=== PATIENT | female | born 1970 | race Caucasian/White ===

== ENCOUNTER → 2016-05-06 | Outpatient (CLI) | payer OTHER ==
--- NOTE | 2016-05-06 12:13 | US ---
EXAMINATION TYPE: US pelvic complete DATE OF EXAM: 05/06/2016 8:40 AM COMPARISON: NONE CLINICAL HISTORY: metrorrhagia, on meds for B/P (Diavan); Ht5'4, Wt 260lbs; C Section x 2, patie nt stated is being assessed for potential endometrial ablation TECHNIQUE: Transabdominal (TA) Date of LMP: 04/05/2016 EXAM MEASUREMENTS: Uterus: 9.6 x 4.5 x 3.3cm Endometrial Stripe: 0.7cm Right Ovary: 2.4 x 1.6 x 1.1cm Left Ovary: not identified FINDINGS: Exam is limited. There is no ascites present. 1. Uterus: Anteverted 2. Endometrium: thinner for Day 31LMP 3. Right Ovary: wnl 4. Left Ovary: not seen after multiple assessments by TAUS; patient deferred TVUS 5. Bilateral Adnexa: bowel noted in bilateral adnexa 6. Posterior cul-de-sac: wnl IMPRESSION: Limited exam.
== END | disposition home or self-care (01) ==
LOC: RADUSWWP 08:06
PROVIDERS: ATTEND Obstetrics & Gynecology
DX: N92.1 Excessive and frequent menstruation with irregular cycle (principal)
CPT/HCPCS: 76856

== ENCOUNTER → 2016-10-06 | Outpatient (CLI) | payer OTHER ==
--- NOTE | 2016-10-06 08:58 | MM ---
Reason for exam: follow-up at short interval from prior study. Last mammogram was performed 6 months ago. History: Patient had first child at age 31. Family history of breast cancer in mother at age 58. Taking hormonal contraceptives for 5 years. Physical Findings: Nurse did not find any significant physical abnormalities on exam. MG 3D Diag Mammo W/Cad LT CC and MLO view(s) were taken of the left breast. Prior study comparison: April 16, 2016, bilateral MG 3d screening mammo w/cad. July 24, 2014, left breast MG work up mamm w CAD LT. July 18, 2014, bilateral MG screening mammo w CAD. There are scattered fibroglandular densities. There is chronic nodularity in the left breast. There is no new dominant lesion. These results were verbally communicated with the patient and result sheet given to the patient on 10/06/16. ASSESSMENT: Benign, BI-RAD 2 RECOMMENDATION: Routine screening mammogram of both breasts in 6 months. Back on schedule.
== END | disposition home or self-care (01) ==
LOC: RADMAMWWP 06:48
PROVIDERS: ATTEND Obstetrics & Gynecology
DX: R92.8 Other abnormal and inconclusive findings on diagnostic imaging of breast (principal)
CPT/HCPCS: G0206; G0279

== ENCOUNTER → 2016-12-01 | Outpatient (CLI) | payer OTHER ==
[2016-12-01 11:25] LABS: ALT 32 U/L (9-52); AST 18 U/L (14-36); Alkaline Phosphatase 62 U/L (38-126); Anion Gap 7 mmol/L; Blood Urea Nitrogen 14 mg/dL (7-17); Calcium 9.3 mg/dL (8.4-10.2); Carbon Dioxide 32 mmol/L (22-30); Chloride 101 mmol/L (98-107); Cholesterol 141 mg/dL (<200); Glucose 83 mg/dL (74-99); HDL Cholesterol 56 mg/dL (40-60); Non-African American GFR(MDRD) >60 (>60 ml/min/1.73 sqM); Potassium 4.4 mmol/L (3.5-5.1); Sodium 140 mmol/L (137-145); Total Bilirubin 0.9 mg/dL (0.2-1.3); Total Protein 6.5 g/dL (6.3-8.2); Triglycerides 109 mg/dL (<150)
== END | disposition home or self-care (01) ==
LOC: LABWHC1 10:27
PROVIDERS: ATTEND Orthopaedic Surgery
DX: Z01.812 Encounter for preprocedural laboratory examination (principal); I10 Essential (primary) hypertension
CPT/HCPCS: 36415; 80053; 80061; 82306

== ENCOUNTER → 2016-12-01 | Outpatient (CLI) | payer OTHER ==
[2016-12-01 11:19] LABS: CH 33.2; CHCM 34.5; HDW 2.87; HGB 14.3 gm/dL (11.4-16.0); MCHC 34.1 g/dL (31.0-37.0); MCV 96.7 fL (80.0-100.0); Mean Platelet Volume 8.3; RBC 4.34 m/uL (3.80-5.40); RDW 13.6 % (11.5-15.5); WBC 6.3 k/uL (3.8-10.6)
[2016-12-01 11:36] LABS: Partial Thromboplastin Time 24.5 sec (22.0-30.0); Prothrombin Time 9.8 sec (9.0-12.0)
[2016-12-01 11:38] LABS: Appearance,Urine Clear (Clear); Bacteria,Urine Rare /hpf; Bilirubin,Urine Negative (Negative); Glucose,Urine (UA) Negative (Negative); Ketones,Urine Negative (Negative); Leukocyte Esterase,Urine Negative (Negative); Mucus,Urine Rare /hpf; Nitrite,Urine Negative (Negative); Particle Count 3795; Protein,Urine Trace (Negative); RBC,Urine 5 /hpf (0-5); Specific Gravity,Urine 1.021 (1.001-1.035); Squamous Epithelial Cell,Urine 2 /hpf (0-4); UA Billing (MACRO vs. MICRO) MICRO; Urobilinogen,Urine <2.0 mg/dL (<2.0); WBC,Urine 2 /hpf (0-5)
== END | disposition home or self-care (01) ==
LOC: LABPAT 10:15
PROVIDERS: ATTEND Orthopaedic Surgery
DX: Z01.812 Encounter for preprocedural laboratory examination (principal); I10 Essential (primary) hypertension
CPT/HCPCS: 81001; 84443; 85027; 85610; 85730; 87070; 87086

== ENCOUNTER 2016-12-15 07:30 | Inpatient (IN) | payer OTHER ==
--- NOTE | 2016-12-14 14:33 | HP ---
Surgery is scheduled for 12/15/2016. Joaquina Holden is a 46-year-old patient seen with symptomatic right knee osteoarthritis. After treatment options were discussed, she elected to proceed with right total knee arthroplasty. Consent was obtained. Medical clearance was provided by Dr. Chu. PAST MEDICAL HISTORY: Hypertension, osteoarthritis. PAST SURGICAL HISTORY: section, left total knee arthroplasty, tubal ligation, tonsillectomy, D&C. DAILY MEDICATIONS: Boniva, Depo-Provera, Diovan, Lortab. ALLERGIES: None reported. SOCIAL HISTORY: Patient denies current tobacco use. PHYSICAL EVALUATION OF THE RIGHT KNEE: Range of motion is -3 to 110 degrees. There is tenderness along the medial joint line. There is crepitance along the medial patellofemoral compartment with range of motion. There is pain with patellofemoral compression. Ligament stable. Hip rotation is without pain. Distal neurovascular exam is intact. Radiographs of the right knee reveal severe osteoarthritis. IMPRESSION: Right knee osteoarthritis. PLAN: Right total knee arthroplasty. SHORTY
[~2016-12-15 07:30] MED LIST: ACETAMINOPHEN TAB 500 MG TAB PO ONE; DEXAMETHASONE SOD PHOSPHATE 10 MG/ML 1 ML VIAL IV ONE; HYDROmorphone 1 MG/ML 1 ML SYRINGE IVP PRN; MELOXICAM 7.5 MG TAB PO ONE; MIDAZOLAM 2 MG/2 ML VIAL IV PRN; ONDANSETRON 4 MG/2 ML VIAL IVP ONE; TRANEXAMIC ACID 1,000 MG in SODIUM CHLORIDE 0.9% 100 ML IVPB ONE; ceFAZolin 3 GM in SODIUM CHLORIDE 0.9% 100 ML IVPB ONE
[2016-12-15] MEDS: LACTATED RINGERS 1,000 ML IV SCH ×2 (08:42→13:43)
[2016-12-15] MEDS ORDERED: MIDAZOLAM 2 MG/2 ML VIAL IVP ONE (09:23)
[2016-12-15] MEDS ORDERED: ROPIVACAINE 246.25 MG, EPINEPHrine 0.5 MG, KETOROLAC 30 MG, cloNIDine HCL/PF 80 MCG, WA... MISCELLANE ONE ×5 (09:50)
[2016-12-15] MEDS ORDERED: PROPOFOL 10 MG/ML 20 ML VIAL IV ONE (10:16)
[2016-12-15] MEDS ORDERED: LIDOCAINE 1% INJ 10MG/ML (20 ML MDV) ONE (10:16)
[2016-12-15] MEDS ORDERED: MIDAZOLAM 2 MG/2 ML VIAL ONE (10:16)
[2016-12-15] MEDS ORDERED: ceFAZolin 3,000 MG in SODIUM CHLORIDE 0.9% IRRIGATIO 3,000 ML IRRIGATION ONE (10:16)
[2016-12-15] MEDS ORDERED: LACTATED RINGERS 1,000 ML IV ONE (11:15)
[2016-12-15] MEDS ORDERED: NALOXONE 0.4 MG/ML 1 ML VIAL IV PRN (12:18)
[2016-12-15] MEDS ORDERED: HYDROcodone/APAP 7.5-325MG 1 EACH TAB PO PRN (12:18)
[2016-12-15] MEDS ORDERED: ONDANSETRON 4 MG/2 ML VIAL IVP PRN (12:18)
[2016-12-15] MEDS ORDERED: hydrOXYzine PAMOATE 25 MG CAP PO PRN (12:18)
[2016-12-15] MEDS ORDERED: HYDROmorphone 1 MG/ML 1 ML SYRINGE IVP PRN ×2 (12:18)
--- NOTE | 2016-12-15 12:18 | P.OP ---
Date of Procedure: 12/15/16 Preoperative Diagnosis: Right knee osteoarthritis Postoperative Diagnosis: Right knee osteoarthritis Procedure(s) Performed: Right total knee arthroplasty Implants: 1. Donya persona right size 6 narrow cemented cruciate retaining femoral component 2. Donya persona right size E cemented tibial tray 3. Donya persona 13 mm medial congruent polyethylene tibial insert 4. Donya persona 32 mm all polyethylene cemented patella Anesthesia: regional (Adductor canal block), local, spinal Surgeon: Tommy Nance Measurement Coordinator #1: Honorio Vallejo Estimated Blood Loss (ml): 250 Pathology: other (Bone) Condition: stable Disposition: PACU Indications for Procedure: 46-year-old patient seen was symptomatic right knee osteoarthritis. After treatment options were discussed, she elected to proceed with total knee arthroplasty. Operative Findings: see description of procedure Description of Procedure: Patient was taken to the operative suite after having undergone an adductor canal block by department of anesthesia. Patient underwent a spinal anesthetic by the department of anesthesia. Patient was given preoperative IV antibiotics and TXA. A well-padded tourniquet was placed about the [] lower extremity. The lower extremity was then prepped and draped in the normal sterile orthopedic fashion. A standard anterior incision was made sharply through skin. Dissection was taken down through the subcutaneous soft tissues down to the extensor mechanism. A medial arthrotomy was performed, patella was everted and knee was flexed. There was advanced osteoarthritis noted. A proximal tibial cutting guide was positioned. Proximal tibial cut was made. A distal intramedullary femoral cutting guide was positioned, distal femoral cut made. We placed the appropriate sizing guide and selected the appropriate size. A distal 4-in-1 femoral cutting block was positioned, distal femoral cuts were made. We now placed a trial femoral component into position, along with an appropriate size tibial tray and insert. We now took the knee through range of motion and had full extension good flexion and good overall soft tissue balance noted. The patella was everted and a flush cut made with patellar quad tendon. We templated the patella, appropriate drill holes were made. An appropriate trial patella was positioned, knee was taken through full range of motion with the patella tracking very nicely. The trial patella was removed. Drill holes were made through the femoral component. At this point we did insufflated the tourniquet to 350. All trial components were removed after marking off the appropriate rotation of the tibia. Retractors were now positioned along the proximal tibia. An appropriate keel punch was made with the appropriate size tibial guide. At this point appropriate size implants were chosen and opened. The joint was irrigated copiously with pulse lavage mechanical irrigation. The deep soft tissues were infiltrated local analgesic. We mixed antibiotic methylmethacrylate. Once the methyl methacrylate was ready, the tibial component was cemented into place removing any excess methylmethacrylate. The femoral component was cemented into place removing the removing any excess methylmethacrylate. We then inserted the appropriate size polyethylene tibial insert. We made sure that it was locked into position. We took the knee into full extension, and then back in a flexion making sure we had removed any excess methylmethacrylate. The patellar component was then cemented down and secured with clamp. Excess methylmethacrylate removed. We kept the knee in full extension, patellar clamp in position until methylmethacrylate had hardened. Once it had hardened the patellar clamp was removed. The knee was taken through full range of motion. The patella tracked nicely. There was good soft tissue balancing. The tourniquet was now released. Additional hemostasis was achieved via electrocautery. The wound was again irrigated with pulse lavage mechanical irrigation. A second gram of TXA was given. The extensor mechanism was repaired with Vicryl. We checked the repair with range of motion and it was stable. The subcutaneous soft tissues were repaired with Vicryl in layers. The skin was approximated with pernio/Dermabond. Sterile dressings were applied followed by loose web roll and Moses bandage. The patient was transferred to a bed, and taken to recovery in stable and satisfactory condition. Junaid FERNANDEZ assisted with the procedure.
[2016-12-15] MEDS ORDERED: ROPIVACAINE 1,100 MG, SODIUM CHLORIDE 0.9% 330 ML MISCELLANE PRN ×2 (12:26)
--- NOTE | 2016-12-15 13:24 | XR ---
EXAMINATION TYPE: XR knee limited RT DATE OF EXAM: 12/15/2016 CLINICAL HISTORY: Right knee pain and arthritis status post total knee replacement. TECHNIQUE: Portable AP and crosstable lateral views of the right knee are obtained immediately posto peratively. COMPARISON: Left knee radiographs dated 03/23/2011 FINDINGS: Metallic hardware from total right knee arthroplasty is seen and appears satisfactory in a lignment and position. There is evidence of recent surgery with diffuse subcutaneous gas. IMPRESSION: METALLIC HARDWARE FROM TOTAL RIGHT KNEE ARTHROPLASTY IS SATISFACTORY IN ALIGNMENT.
[2016-12-15] MEDS: traMADol 50 MG TAB PO SCH ×3 (13:41→22:35)
[2016-12-15 13:49] VITALS: BMI 46.4
[2016-12-15] MEDS: HYDROmorphone 1 MG/ML 1 ML SYRINGE IVP PRN ×2 (14:20→18:37)
[2016-12-15] MEDS: ceFAZolin 3 GM in SODIUM CHLORIDE 0.9% 100 ML IVPB SCH (16:08)
--- NOTE | 2016-12-15 16:10 | P.CONS ---
History of Present Illness - Reason for Consult Consult date: 12/15/16 Medical management Requesting physician: Tommy Nance - Chief Complaint Right total knee replacement medical management - History of Present Illness This is a pleasant 46-year-old old lady patient of Dr. Carver. She has underlying history of hypertension, DJD, admitted to the hospital for elective right total knee arthroplasty performed by Dr. Nance on December 15, she came in postoperatively without any complications. DVT, patient denies any chest pain no shortness of breath no difficulty breathing, no nausea no vomiting. She had spinal anesthesia. Review of Systems Constitutional: Reports as per HPI, Denies anorexia, Denies chills, Denies chronic headaches, Denies chronic pain, Denies daytime sleepiness, Denies fatigue, Denies fever, Denies lethargy, Denies malaise, Denies night sweats, Denies poor appetite, Denies sweats, Denies weakness, Denies weight gain, Denies weight loss Ears, nose, mouth and throat: Reports as per HPI, Denies ant. neck pain, Denies bleeding gums, Denies dental pain, Denies dysphagia, Denies epistaxis, Denies headache, Denies hoarseness, Denies mouth pain, Denies nasal congestion, Denies nasal discharge, Denies neck fullness/pressure, Denies neck lump, Denies nose pain, Denies odynophagia, Denies post-nasal drip, Denies sinus pain, Denies sinus pressure, Denies swelling in mouth, Denies swelling in throat, Denies sore throat, Denies vertigo, Denies voice changes Cardiovascular: Reports as per HPI, Denies chest pain, Denies claudication, Denies decreased exercise tolerance, Denies dyspnea on exertion, Denies edema, Denies high blood pressure, Denies irregular heart beat, Denies leg edema, Denies lightheadedness, Denies orthopnea, Denies palpitations, Denies paroxysmal nocturnal dyspnea, Denies phlebitis, Denies rapid heart beat, Denies shortness of breath, Denies syncope Respiratory: Reports as per HPI, Denies congestion, Denies cough, Denies cough with sputum, Denies dyspnea, Denies excessive sputum, Denies hemoptysis, Denies home oxygen, Denies pain, Denies pain on inspiration, Denies pleurisy, Denies respiratory infections, Denies sleep apnea, Denies snoring, Denies wheezing Gastrointestinal: Reports as per HPI, Denies abdominal pain, Denies belching, Denies bloating, Denies BRBPR, Denies change in bowel habits, Denies coffee ground emesis, Denies constipation, Denies diarrhea, Denies dyspepsia, Denies early satiety, Denies excessive gas, Denies heartburn, Denies hematemesis, Denies hematochezia, Denies indigestion, Denies jaundice, Denies lactose intolerance, Denies loss of appetite, Denies melena, Denies nausea, Denies vomiting Genitourinary: Reports as per HPI, Denies abnormal vaginal bleeding, Denies decreased libido, Denies difficulty conceiving, Denies difficulty voiding, Denies dysmenorrhea, Denies dyspareunia, Denies dysuria, Denies flank pain, Denies genital sores, Denies hematuria, Denies hot flashes, Denies incomplete emptying, Denies kidney stones, Denies menorrhagia, Denies mixed incontinence, Denies nocturia, Denies pelvic pain, Denies post void dribbling, Denies , Denies prolapse symptoms, Denies stress incontinence, Denies urge incontinence , Denies urgency, Denies urinary frequency, Denies vaginal discharge, Denies vaginal dryness, Denies vaginal itching, Denies vaginal odor Menstruation: Reports as per HPI, Denies amenorrhea, Denies amenorrhea on BC, Denies currently menstrual, Denies cycle < 21 days, Denies cycle > 35 days, Denies cycle variable, Denies menses 1-7 days, Denies menses 8 or > days, Denies menses variable, Denies period heavy, Denies period light, Denies period normal, Denies period spotting, Denies post hysterectomy, Denies postmenopausal , Denies premenarcheal Musculoskeletal: Reports as per HPI, Denies arm numbness/tingling, Denies atrophy, Denies fractures, Denies frequent falls, Denies gait dysfunction, Denies hot joints, Denies leg numbness/tingling, Denies limitation of motion, Denies loss of height, Denies low back pain, Denies morning stiffness, Denies muscle cramps, Denies muscle weakness, Denies myalgias, Denies neck pain, Denies neck stiffness, Denies prior amputations, Denies redness of joints, Denies shooting arm pain, Denies shooting leg pain Integumentary: Reports as per HPI Neurological: Reports as per HPI, Denies aphasia, Denies ataxia, Denies balance difficulties, Denies burning pain, Denies change in mentation, Denies change in smell/taste, Denies change in speech, Denies confusion, Denies convulsions, Denies double vision, Denies gait dysfunction, Denies head injury, Denies headaches, Denies hearing difficulties, Denies lack of coordination, Denies loss of vision, Denies memory loss, Denies migraines, Denies motor disturbance, Denies numbness, Denies paralysis, Denies paresthesias, Denies seizures, Denies sensory deficit, Denies spasticity, Denies syncope, Denies tic, Denies tingling , Denies transient paralysis, Denies tremors, Denies vertigo, Denies weakness, Denies visual changes Psychiatric: Reports as per HPI Endocrine: Reports as per HPI Hematologic/Lymphatic: Reports as per HPI Allergic/Immunologic: Reports as per HPI Past Medical History Past Medical History: Hypertension, Osteoarthritis (OA) History of Any Multi-Drug Resistant Organisms: None Reported Past Surgical History: Cholecystectomy, Hernia Repair, Tonsillectomy, Tubal Ligation Additional Past Surgical History / Comment(s): LEFT KNEE ARTHROPLASTY. [facility]MB HERNIA. PERMANENT TUBE IN RIGHT EAR (HAD CHRONIC EAR INFECTIONS AND DRAINAGE.) total right knee dec 15, 2016 Past Anesthesia/Blood Transfusion Reactions: No Reported Reaction Past Psychological History: No Psychological Hx Reported Smoking Status: Former smoker Past Alcohol Use History: Occasional Additional Past Alcohol Use History / Comment(s): CAS[employer] SMOK[employer], QUIT 20 YRS AGO Past Drug Use History: None Reported - Past Family History Mother History Unknown: Yes (IGT lymphedema) Family Medical History: Cancer Additional Family Medical History / Comment(s): BREAST Father History Unknown: Yes (igt) Sister(s) Family Medical History: No Reported History Daughter(s) History Unknown: Yes (healthy 1 daughter) Son(s) History Unknown: Yes (healthy) Medications and Allergies Home Medications Medication Instructions Recorded Confirmed Type Multivitamins, Thera [Multivitamin 1 tab PO DAILY 12/08/16 12/15/16 History (formulary)] Naproxen Sodium [Aleve] 220 - 440 mg PO Q6H PRN 12/08/16 12/15/16 History Valsartan/Hydrochlorothiazide 1 tab PO DAILY 12/08/16 12/15/16 History [Valsartan-Hctz 80-12.5 mg Tab] Allergies Allergy/AdvReac Type Severity Reaction Status Date / Time No Known Allergies Allergy Verified 12/08/16 10:40 Physical Exam Vitals: Vital Signs Temp Pulse Pulse Resp BP Pulse Ox 12/15/16 15:00 100 16 135/63 97 12/15/16 14:45 103 H 16 131/66 96 12/15/16 14:30 99 16 141/68 12/15/16 14:15 95 16 147/70 96 12/15/16 14:00 99 16 144/78 97 12/15/16 13:45 87 16 137/66 97 12/15/16 13:30 97.3 F L 81 16 127/60 97 12/15/16 13:18 76 16 144/66 98 12/15/16 13:03 75 16 137/69 97 12/15/16 12:45 87 16 137/71 97 12/15/16 12:36 97.9 F 81 16 131/70 97 12/15/16 08:29 98.4 F 87 18 130/73 97 Intake and Output 12/15/16 12/15/16 12/15/16 06:59 14:59 22:59 Intake Total 1846 Output Total 1300 Balance 546 Intake: IV 1606 Oral 240 Output: Urine 1050 Estimated Blood Loss 250 Other: Voiding Method Indwelling Catheter Weight 126.552 kg Patient Weight 12/16/16 06:59 Weight 126.552 kg - Constitutional General appearance: cooperative, no acute distress - EENT Eyes: anicteric sclerae, EOMI, PERRLA, dentition normal, normal appearance ENT: hearing grossly normal, NA/AT, normal oropharynx - Neck Neck: no lymphadenopathy, normal ROM, no other, no rigidity, no stridor, no thyromegaly - Respiratory Respiratory: bilateral: CTA, negative: diminished, dullness, rales, rhonchi - Cardiovascular Rhythm: regular Heart sounds: normal: S1, S2 Abnormal Heart Sounds: no systolic murmur, no diastolic murmur, no rub, no S3 Gallop, no S4 Gallop, no click, no other - Gastrointestinal General gastrointestinal: normal bowel sounds, soft - Integumentary Integumentary: normal, normal turgor - Neurologic Neurologic: CNII-XII intact - Musculoskeletal Musculoskeletal: strength equal bilaterally - Psychiatric Psychiatric: A&O x's 3, appropriate affect, intact judgment & insight Assessment and Plan Plan: 1. Right total knee replacement performed 12/15/2016, postoperative day #0, patient's receiving Lovenox for DVT prophylaxis as well as incentive spirometry , opiates for narcotics, 2. Osteoarthritis, polyarthritis on when necessary NSAIDs 3. Hypertension currently on valsartan HCTZ one every morning, this can be started in the next morning, enalapril when necessary 2.5 IV when necessary for systolic blood pressure, 4. Vitamin D deficiency with baseline level of 23 last November 2016 vit d3 2000 units started 5. BMI of 46, with elevated carbon dioxide levels, underlying sleep apnea can be shown to however sleep study needs to be performed as an outpatient in the future Thank you Dr. Nance in allowing us to pursue patent care. Patient. We'll be following her with you during this intraoperative course, changes to treatment would be made based on her clinical progress
[2016-12-15] MEDS ORDERED: ENALAPRILAT 1.25 MG/ML 1 ML VIAL IVP PRN (16:11)
[2016-12-15] MEDS: HYDROcodone/APAP 7.5-325MG 1 EACH TAB PO PRN (16:13)
[2016-12-15 20:10] LABS: Glucose,Whole Blood 153 mg/dL (75-99)
[2016-12-15] MEDS: SENNOSIDES-DOCUSATE SODIUM 1 EACH TAB PO SCH (20:27)
--- NOTE | 2016-12-15 20:41 | P.ONQ ---
Anesthesiology Proc Note - PNB - Peripheral Nerve Block Performed Right Adductor Canal Infusion Time Out Performed: Yes Procedure Start Time: : Procedure Stop Time: : Indication: Acute Post-Operative Pain, Requested by physician Sedation Type: Sedate with meaningful contact maintained Preparation: Sterile Dressing Position: Supine Catheter: Indwelling Needle Types: On-Q Needle Size: 150mm (6") Needle Gauge: 21 Technique: Ultrasound Injectate: 0.5% Ropivacaine (see comment for volume) (.5% ropi 20cc plus 15 cc0h xylo2%) Blood Aspirated: No Pain Paresthesia on Injection Noted: No Resistance on Injection: Normal Events: Uneventful and Well Tolerated
[2016-12-16] MEDS: HYDROmorphone 1 MG/ML 1 ML SYRINGE IVP PRN (02:34)
[2016-12-16] MEDS: HYDROcodone/APAP 7.5-325MG 1 EACH TAB PO PRN ×3 (06:59→17:55)
[2016-12-16] MEDS: LACTATED RINGERS 1,000 ML IV SCH ×4 (07:01→12:12)
[2016-12-16] MEDS: ceFAZolin 3 GM in SODIUM CHLORIDE 0.9% 100 ML IVPB SCH (07:38)
[2016-12-16 07:53] VITALS: RESP 16
[2016-12-16] MEDS: ENOXAPARIN 30 MG/0.3 ML SYRINGE SQ SCH ×2 (08:21→20:41)
[2016-12-16] MEDS: VALSARTAN 80 MG TAB PO SCH (08:21)
[2016-12-16] MEDS: traMADol 50 MG TAB PO SCH ×4 (08:22→20:40)
[2016-12-16] MEDS: HYDROCHLOROTHIAZIDE 12.5 MG CAP PO SCH (08:22)
[2016-12-16] MEDS: MELOXICAM 7.5 MG TAB PO SCH (08:24)
[2016-12-16] MEDS: FAMOTIDINE 20 MG TAB PO SCH (08:24)
[2016-12-16 08:47] LABS: Basophils % (A) 0 %; CH 33.5; CHCM 33.7; Eosinophils % (A) 0 %; HCT 36.5 % (34.0-46.0); HDW 2.87; HGB 11.9 gm/dL (11.4-16.0); Luc # (Auto) 0.13; Luc % (Auto) 2; Lymphocytes # (A) 1.1 k/uL (1.0-4.8); Lymphocytes % (A) 14 %; MCH 32.6 pg (25.0-35.0); MCHC 32.6 g/dL (31.0-37.0); Mean Platelet Volume 8.1; Monocytes # (A) 0.5 k/uL (0-1.0); Monocytes % (A) 7 %; Neutrophils # (A) 5.9 k/uL (1.3-7.7); Neutrophils % (A) 77 %; RBC 3.65 m/uL (3.80-5.40); RDW 13.6 % (11.5-15.5); WBC 7.7 k/uL (3.8-10.6); WBC (Perox) 7.68
[2016-12-16 09:17] LABS: Anion Gap 8 mmol/L; Blood Urea Nitrogen 14 mg/dL (7-17); Calcium 8.3 mg/dL (8.4-10.2); Carbon Dioxide 25 mmol/L (22-30); Chloride 102 mmol/L (98-107); Glucose 81 mg/dL (74-99); Non-African American GFR(MDRD) >60 (>60 ml/min/1.73 sqM); Potassium 4.1 mmol/L (3.5-5.1); Sodium 135 mmol/L (137-145)
--- NOTE | 2016-12-16 10:16 | P.PN ---
Progress Note - Text 12/16 731 46-year-old female status post total knee replacement with Dr. Nance. Patient seen this morning and evaluated for pain control, patient has On-Q pump for pain control running at 8 mL an hour. VAS score is 3 and pain is mostly located on the posterior aspect of the knee. Plan to continue On-Q pump infusion, increase the rate if needed.
--- NOTE | 2016-12-16 11:00 | P.PN ---
Subjective Principal diagnosis: Status post right total knee arthroplasty Patient is seen today resting in her hospital chair, she appears to be in no acute distress. Her pain is controlled with current medication. She's ambulated well with therapy. She denies any headaches, lightheadedness, chest pain, shortness of breath. Objective - Vital Signs Vital signs: Vital Signs Temp 98.1 F 12/16/16 07:51 Pulse 63 12/16/16 07:51 Resp 16 12/16/16 07:51 BP 121/62 12/16/16 07:51 Pulse Ox 97 12/16/16 07:51 Intake & Output 12/15/16 12/16/16 12/16/16 18:59 06:59 18:59 Intake Total 1846 4580 Output Total 1300 800 Balance 546 4580 -800 Weight 126.552 kg Intake: IV 1606 Intake, IV Titration 1700 Amount Lactated Ringers 1,000 ml 1600 @ 100 mls/hr IV .Q10H MAHNAZ Rx#:[id number] ceFAZolin 3 gm In Sodium 100 Chloride 0.9% 100 ml @ 100 mls/hr IVPB Q8HR MAHNAZ Rx#:[id number] Oral 240 2880 Output: Urine 1050 800 Estimated Blood Loss 250 Other: Voiding Method Indwelling Catheter Indwelling Catheter Indwelling Catheter - Exam Right lower extremity: Incision is clean, dry and intact. Minimal soft tissue swelling present around the knee. Calf is soft, no tenderness with palpation. Plantar flexion, dorsiflexion, EHL, FHL are intact. Sensory exam to light touch throughout the extremities intact, dorsal pedis pulses 2+. - Labs CBC & Chem 7: 12/16/16 08:07 12/16/16 08:14 Labs: Abnormal Lab Results - Last 24 Hours (Table) 12/15/16 12/16/16 12/16/16 Range/Units 20:09 08:07 08:14 RBC 3.65 L (3.80-5.40) m/uL Sodium 135 L (137-145) mmol/L POC Glucose (mg/dL) 153 H (75-99) mg/dL Calcium 8.3 L (8.4-10.2) mg/dL Assessment and Plan Plan: Assessment: 1. Postop day 1 status post right total knee arthroplasty Plan: 1. Pain control, continue use of current meds 2. Continue physical therapy and CPM 3. Daily dressing changes/ice and elevate 4. GI and DVT prophylaxis, continue Lovenox 5. Medical recommendations 6. Discharge planning: Patient likely will be discharged home tomorrow Time with Patient: Less than 30
[2016-12-16] MEDS: MULTIVITAMINS, THERA 1 EACH TAB PO SCH ×2 (11:12→11:14)
[2016-12-16] MEDS: CHOLECALCIFEROL 1,000 UNIT TAB PO SCH (11:12)
--- NOTE | 2016-12-16 14:13 | P.PN ---
Subjective This is a pleasant 46-year-old old lady patient of Dr. Carver. She has underlying history of hypertension, DJD, admitted to the hospital for elective right total knee arthroplasty performed by Dr. Nance on December 15, she came in postoperatively without any complications. DVT, patient denies any chest pain no shortness of breath no difficulty breathing, no nausea no vomiting. She had spinal anesthesia. 12/16: Patient is working well with physical therapy. Pain is currently controlled. She is continued with On-Q pump. She states that discharge plan is for tomorrow. Objective - Vital Signs Vital signs: Vital Signs Temp 98.1 F 12/16/16 07:51 Pulse 63 12/16/16 07:51 Resp 16 12/16/16 07:51 BP 121/62 12/16/16 07:51 Pulse Ox 97 12/16/16 07:51 Intake & Output 12/15/16 12/16/16 12/16/16 18:59 06:59 18:59 Intake Total 1846 4580 Output Total 1300 800 Balance 546 4580 -800 Weight 126.552 kg Intake: IV 1606 Intake, IV Titration 1700 Amount Lactated Ringers 1,000 ml 1600 @ 100 mls/hr IV .Q10H MAHNAZ Rx#:[id number] ceFAZolin 3 gm In Sodium 100 Chloride 0.9% 100 ml @ 100 mls/hr IVPB Q8HR MAHNAZ Rx#:[id number] Oral 240 2880 Output: Urine 1050 800 Estimated Blood Loss 250 Other: Voiding Method Indwelling Catheter Indwelling Catheter Indwelling Catheter - Exam General appearance: cooperative, no acute distress - EENT Eyes: anicteric sclerae, EOMI, PERRLA, dentition normal, normal appearance ENT: hearing grossly normal, NA/AT, normal oropharynx - Neck Neck: no lymphadenopathy, normal ROM, no other, no rigidity, no stridor, no thyromegaly - Respiratory Respiratory: bilateral: CTA, negative: diminished, dullness, rales, rhonchi - Cardiovascular Rhythm: regular Heart sounds: normal: S1, S2 Abnormal Heart Sounds: no systolic murmur, no diastolic murmur, no rub, no S3 Gallop, no S4 Gallop, no click, no other - Gastrointestinal General gastrointestinal: normal bowel sounds, soft - Integumentary Integumentary: normal, normal turgor - Neurologic Neurologic: CNII-XII intact - Musculoskeletal Musculoskeletal: strength equal bilaterally - Psychiatric Psychiatric: A&O x's 3, appropriate affect, intact judgment & insight - Labs CBC & Chem 7: 12/16/16 08:07 12/16/16 08:14 Labs: Abnormal Lab Results - Last 24 Hours (Table) 12/15/16 12/16/16 12/16/16 Range/Units 20:09 08:07 08:14 RBC 3.65 L (3.80-5.40) m/uL Sodium 135 L (137-145) mmol/L POC Glucose (mg/dL) 153 H (75-99) mg/dL Calcium 8.3 L (8.4-10.2) mg/dL Assessment and Plan Plan: 1. Right total knee replacement performed 12/15/2016, postoperative day #0, patient's receiving Lovenox for DVT prophylaxis as well as incentive spirometry , opiates for narcotics, 2. Osteoarthritis, polyarthritis on when necessary NSAIDs 3. Hypertension currently on valsartan HCTZ one every morning, this can be started in the next morning, enalapril when necessary 2.5 IV when necessary for systolic blood pressure, 4. Vitamin D deficiency with baseline level of 23 last November 2016 vit d3 2000 units started 5. BMI of 46, with elevated carbon dioxide levels, underlying sleep apnea can be shown to however sleep study needs to be performed as an outpatient in the future
[2016-12-16] MEDS: SENNOSIDES-DOCUSATE SODIUM 1 EACH TAB PO SCH (20:41)
[2016-12-17 02:06] LABS: Glucose,Whole Blood 110 mg/dL (75-99)
[2016-12-17] MEDS: HYDROcodone/APAP 7.5-325MG 1 EACH TAB PO PRN ×3 (02:32→13:42)
[2016-12-17] MEDS: LACTATED RINGERS 1,000 ML IV SCH ×2 (04:18→08:04)
[2016-12-17 08:02] VITALS: BP 146/69; PULSE 114; TEMP 98.3
[2016-12-17] MEDS: ENOXAPARIN 30 MG/0.3 ML SYRINGE SQ SCH (08:04)
[2016-12-17] MEDS: MELOXICAM 7.5 MG TAB PO SCH (08:05)
[2016-12-17] MEDS: HYDROCHLOROTHIAZIDE 12.5 MG CAP PO SCH (08:05)
[2016-12-17] MEDS: FAMOTIDINE 20 MG TAB PO SCH (08:05)
[2016-12-17] MEDS: VALSARTAN 80 MG TAB PO SCH (08:05)
--- NOTE | 2016-12-17 10:57 | P.PN ---
Subjective Principal diagnosis: Status post right total knee arthroplasty Patient is seen today resting in her hospital chair, she appears to be in no acute distress. Her pain is controlled with current medication. She's ambulated well with therapy. She denies any headaches, lightheadedness, chest pain, shortness of breath. Objective - Vital Signs Vital signs: Vital Signs Temp 98.3 F 12/17/16 07:00 Pulse 114 H 12/17/16 07:00 Resp 16 12/17/16 07:00 BP 146/69 12/17/16 07:00 Pulse Ox 97 12/17/16 07:00 Intake & Output 12/16/16 12/17/16 12/17/16 18:59 06:59 18:59 Intake Total 850 237 Output Total 950 Balance -950 850 237 Intake: Oral 850 237 Output: Urine 950 Other: Voiding Method Indwelling Catheter Toilet # Voids 1 2 - Exam Right lower extremity: Incision is clean, dry and intact. Minimal soft tissue swelling present around the knee. Calf is soft, no tenderness with palpation. Plantar flexion, dorsiflexion, EHL, FHL are intact. Sensory exam to light touch throughout the extremities intact, dorsal pedis pulses 2+. - Labs CBC & Chem 7: 12/16/16 08:07 12/16/16 08:14 Labs: Abnormal Lab Results - Last 24 Hours (Table) 12/17/16 Range/Units 01:44 POC Glucose (mg/dL) 110 H (75-99) mg/dL Assessment and Plan Plan: Assessment: 1. Postop day #2 status post right total knee arthroplasty Plan: 1. Pain control, continue use of current meds 2. Continue physical therapy and CPM 3. Daily dressing changes/ice and elevate 4. GI and DVT prophylaxis, will discharge home on Xarelto 10mg 5. Medical recommendations 6. Discharge planning: Patient will be discharged home today Time with Patient: Less than 30
--- NOTE | 2016-12-17 11:01 | P.DS ---
Providers Date of admission: 12/15/16 08:05 Expected date of discharge: 12/17/16 Attending physician: Tommy Nance Consults: 12/15/16 12:18 Consult Physician Routine Consulting Provider: Khalida Carver Consult Reason/Comments: Medical management Do you want consulting provider notified?: Yes 12/15/16 13:26 Consult Physician Routine Consulting Provider: Lizzeth Messina Consult Reason/Comments: medical management Do you want consulting provider notified?: Already Contacted Primary care physician: Khalida [facility] Course: Date of admission: 12/15/2016 Date of discharge: 12/17/2016 Admission diagnosis: Status post right total knee arthroplasty Discharge diagnosis: Same Attending physician: Dr. Nance Surgical procedures: Right total knee arthroplasty Brief history: Patient is a 46-year-old female with a history of progressive primary right knee osteoarthritis. At this point patient has failed conservative treatment measures and has opted to proceed with a elective right total knee arthroplasty. Hospital course: Details of patient's surgery can be found in operative report. Patient tolerated the procedure well and was subsequently transported to orthopedic floor. Patient's orthopeidc and medical care was provided daily. Patient had daily laboratory tests performed for evaluation of overall blood counts. Patient had daily physical therapy to include strengthening range of motion as well as education with walker ambulation. Patient had daily CPM usage as part of their physical therapy program. Patient was treated with Lovenox for their postoperative DVT prophylaxis during their inpatient stay. Patient was noted to have a relatively uneventful postoperative course. Patient reported satisfactory pain control with oral pain medications by postoperative day 0. Patient showed satisfactory progress with physical therapy. Patient moved steadily through the program and had no difficulty meeting the goals by postoperative day 2. Given patient's otherwise satisfactory course and having met physical therapy goals, plan is to discharge patient home on postoperative day 2. Discharge condition/disposition: Patient will be discharged home in stable condition. Discharge medications: Instructions are given on resumption of patient's normal daily medications per primary care recommendation, in addition patient will be prescribed Glendora 7.5 mg/325 mg, tramadol 50 mg, Colace milligrams, Pepcid 20 mg , Xarelto 10 mg. Discharge instructions: 1. Wound care and infection precautions, keep incision dry and covered while showering, no lotions, creams, moisturizers. No soaking, tubs, pools, hottubs. Do not scrub over the incision. 2. Weight-bear as tolerated with walker / cane until follow-up. 3. Ice and elevate when necessary. Do not exceed 20 minutes per hour with ice pack. 4. Utilize compression sleeve until seen at first follow up appointment. 5. Visiting nursing care. 6. Home physical therapy including home CPM. 7. Pain meds and anticoagulants per prescription. 8. Pain medication has potential to cause constipation. Increase oral fluid and fiber intake. Contact primary care provider if you have not had a bowel movement within 48 hours after discharge 9. No anti-inflammatory medication until discussed at first post operative visit, this including Motrin, Aleve, Mobic, Diclofenac. 10. Follow up in office at 2 weeks postop with Junaid Vallejo PA-C 11. Follow up with your primary care doctor 7-10 days after discharge. 12. Contact [facility] with any questions, . Procedures: Right total knee arthroplasty Patient Condition at Discharge: Good Plan - Discharge Summary New Discharge Prescriptions: New Rivaroxaban [Xarelto] 10 mg PO DAILY #12 tab Docusate [Colace] 100 mg PO DAILY #30 capsule Famotidine [Pepcid] 20 mg PO DAILY #30 tablet HYDROcodone/APAP 7.5-325MG [Glendora 7.5] 1 - 2 each PO Q6HR PRN #60 tab PRN Reason: Pain traMADol HCl [Ultram] 50 mg PO Q6H PRN #40 tab PRN Reason: Pain No Action Valsartan/Hydrochlorothiazide [Valsartan-Hctz 80-12.5 mg Tab] 1 tab PO DAILY Naproxen Sodium [Aleve] 220 - 440 mg PO Q6H PRN PRN Reason: Pain Multivitamins, Thera [Multivitamin (formulary)] 1 tab PO DAILY Discharge Medication List Multivitamins, Thera [Multivitamin (formulary)] 1 tab PO DAILY 12/08/16 [History ] Naproxen Sodium [Aleve] 220 - 440 mg PO Q6H PRN 12/08/16 [History] Valsartan/Hydrochlorothiazide [Valsartan-Hctz 80-12.5 mg Tab] 1 tab PO DAILY 11/17 [History] Rivaroxaban [Xarelto] 10 mg PO DAILY #12 tab 12/16/16 [Rx] Docusate [Colace] 100 mg PO DAILY #30 capsule 12/17/16 [Rx] Famotidine [Pepcid] 20 mg PO DAILY #30 tablet 12/17/16 [Rx] HYDROcodone/APAP 7.5-325MG [Glendora 7.5] 1 - 2 each PO Q6HR PRN #60 tab 12/17/16 [ Rx] traMADol HCl [Ultram] 50 mg PO Q6H PRN #40 tab 12/17/16 [Rx] Follow up Appointment(s)/Referral(s): [facility], [NON-STAFF] - Honorio Vallejo PAC [PHYSICIAN INFORMATION SYSTEMS SECURITY ANALYST] - 12/31/16 3:20 pm Activity/Diet/Wound Care/Special Instructions: Orthopedic Discharge Instructions: 1. Wound care and infection precautions, keep incision dry and covered while showering, no lotions, creams, moisturizers. No soaking, pools, hot tubs. Do not scrub over incision. 2. Weight-bear as tolerated with walker / cane until follow-up. 3. Ice and elevate when necessary. Do not exceed 20 minutes per hour with ice pack. 4. Utilize compression sleeve until seen at first follow up appointment. 5. Visiting nursing care. 6. Home physical therapy including home CPM. 7. Pain meds and anticoagulants per prescription. 8. Pain medication has potential to cause constipation. Increase oral fluid and fiber intake. Contact primary care provider if you have not had a bowel movement within 48 hours after discharge. 9. No anti-inflammatory medication until discussed at first post operative visit, this including Motrin, Aleve, Mobic, Diclofenac. 10. Follow up in office at 2 weeks postop with Junaid Vallejo PA-C 11. Follow up with your primary care doctor 7-10 days after discharge. 12. Contact [facility] with any questions, . Discharge Disposition: HOME WITH HOME HEALTH SERVICES
[2016-12-17] MEDS: traMADol 50 MG TAB PO SCH ×2 (12:35→12:38)
[2016-12-17] MEDS: CHOLECALCIFEROL 1,000 UNIT TAB PO SCH (12:36)
[2016-12-17] MEDS: MULTIVITAMINS, THERA 1 EACH TAB PO SCH ×2 (12:36→12:37)
--- NOTE | 2016-12-17 14:25 | P.PN ---
Subjective This is a pleasant 46-year-old old lady patient of Dr. Carver. She has underlying history of hypertension, DJD, admitted to the hospital for elective right total knee arthroplasty performed by Dr. Nance on December 15, she came in postoperatively without any complications. DVT, patient denies any chest pain no shortness of breath no difficulty breathing, no nausea no vomiting. She had spinal anesthesia. 12/16: Patient is working well with physical therapy. Pain is currently controlled. She is continued with On-Q pump. She states that discharge plan is for tomorrow. 12/17: Pain is currently controlled. Patient denies any chest pain or shortness of breath. She is scheduled for discharge home later today. Objective - Vital Signs Vital signs: Vital Signs Temp 98.3 F 12/17/16 07:00 Pulse 114 H 12/17/16 08:00 Resp 16 12/17/16 08:00 BP 146/69 12/17/16 07:00 Pulse Ox 97 12/17/16 07:00 Intake & Output 12/16/16 12/17/16 12/17/16 18:59 06:59 18:59 Intake Total 850 237 Output Total 950 Balance -950 850 237 Weight 126.552 kg Intake: Oral 850 237 Output: Urine 950 Other: Voiding Method Indwelling Catheter Toilet Toilet # Voids 1 2 - Exam General appearance: cooperative, no acute distress - EENT Eyes: anicteric sclerae, EOMI, PERRLA, dentition normal, normal appearance ENT: hearing grossly normal, NA/AT, normal oropharynx - Neck Neck: no lymphadenopathy, normal ROM, no other, no rigidity, no stridor, no thyromegaly - Respiratory Respiratory: bilateral: CTA, negative: diminished, dullness, rales, rhonchi - Cardiovascular Rhythm: regular Heart sounds: normal: S1, S2 Abnormal Heart Sounds: no systolic murmur, no diastolic murmur, no rub, no S3 Gallop, no S4 Gallop, no click, no other - Gastrointestinal General gastrointestinal: normal bowel sounds, soft - Integumentary Integumentary: normal, normal turgor - Neurologic Neurologic: CNII-XII intact - Musculoskeletal Musculoskeletal: strength equal bilaterally - Psychiatric Psychiatric: A&O x's 3, appropriate affect, intact judgment & insight - Labs CBC & Chem 7: 12/16/16 08:07 12/16/16 08:14 Labs: Abnormal Lab Results - Last 24 Hours (Table) 12/17/16 Range/Units 01:44 POC Glucose (mg/dL) 110 H (75-99) mg/dL Assessment and Plan Plan: 1. Right total knee replacement performed 12/15/2016, patient's receiving Lovenox for DVT prophylaxis as well as incentive spirometry, opiates for narcotics, 2. Osteoarthritis, polyarthritis on when necessary NSAIDs 3. Hypertension currently on valsartan HCTZ one every morning, this can be started in the next morning, enalapril when necessary 2.5 IV when necessary for systolic blood pressure, 4. Vitamin D deficiency with baseline level of 23 last November 2016 vit d3 2000 units started 5. BMI of 46, with elevated carbon dioxide levels, underlying sleep apnea can be shown to however sleep study needs to be performed as an outpatient in the future Discharge plan: Home with [facility] Impression and plan of care have been directed as dictated by the signing physician. Wendy Liriano nurse practitioner acting as scribe for signing physician. Cc: Dr. Carver
== END 2016-12-17 14:31 | disposition home health service (06) | DRG 470 ==
LOC: 2ORMAIN 08:05 → 3SUR 12:43
PROVIDERS: ADMIT Orthopaedic Surgery; ATTEND Orthopaedic Surgery
PROC: 0SRC0J9 Replacement of Right Knee Joint with Synthetic Substitute, Cemented, Open Approach (ICD-10-PCS; principal; 2016-12-15 10:20)
DX: M17.11 Unilateral primary osteoarthritis, right knee (principal); I10 Essential (primary) hypertension; Z87.891 Personal history of nicotine dependence; Z96.652 Presence of left artificial knee joint; E55.9 Vitamin D deficiency, unspecified; G47.30 Sleep apnea, unspecified; Z79.3 Long term (current) use of hormonal contraceptives; Z79.83 Long term (current) use of bisphosphonates; Z79.899 Other long term (current) drug therapy
CPT/HCPCS: 80048; 81025; 83036; 85025; 88300

== ENCOUNTER 2017-05-15 09:35 | Day surgery (SDC) | payer BC, OTHER ==
--- NOTE | 2017-05-15 03:52 | HP ---
HISTORY AND PHYSICAL CHIEF COMPLAINT: Perforation of the right tympanic membrane. HISTORY OF PRESENT ILLNESS: This patient is a 46-year-old female who was recently seen in my office complaining of decreased hearing in her right ear. The patient has a history with my office of having had 2 T-type ventilation tubes inserted in the past. At the time that she was seen in the office, clinical examination of the ear revealed that she had a central perforation encompassing approximately 15% to 20% of the right tympanic membrane and there was purulent drainage present. In addition to this, it appeared that the tube was present within the perforation. The patient was placed on a 10-day course of Ciprodex otic drops and Cipro 500 mg p.o. b.i.d. Upon returning to the office, clinical examination revealed that the ear was dry but that the perforation remained. It was therefore recommended that the patient undergo an insertion of a right Kartush patch under either IV sedation or general anesthesia, depending upon the anesthesia department's preference. PAST MEDICAL HISTORY: Past medical history reveals that the patient has no known allergies to medications. Current medications include Diovan. Previous surgeries include multiple sets of ventilation tubes in the ears, tonsillectomy, adenoidectomy, hernia repair, and 2 knee replacements. REVIEW OF SYSTEMS: Review of systems is positive with respect to the cardiovascular system for hypertension. The remainder of the review of systems is unremarkable. PHYSICAL EXAMINATION: This patient is a 46-year-old female who is alert and cooperative. HEENT EXAMINATION: Patient is normocephalic. Left tympanic membrane is normal. Examination of the right ear reveals right tympanic membrane has a 15% to 20% central perforation with the middle ear space being dry. There is no evidence of any purulent material or cholesteatoma. There is a previously inserted Jefferson ventilation tube present within the perforation. Pupils equal, round, react to light and accommodation. Extraocular movements are within normal limits. Intranasal examination, examination of oropharynx and the remainder of the head and neck exam are all within normal limits. CHEST/CARDIOVASCULAR: Both lung asencio are clear to percussion and auscultation. The patient is in regular sinus rhythm. S1 and S2 are present without evidence of any murmurs, S3s or S4s. Peripheral pulses are bilaterally symmetrical. ABDOMEN: The abdomen is soft. There is no evidence of any masses, megaly or tenderness. Musculoskeletal and neurological are within normal limits. PELVIC/RECTAL EXAMINATION: The pelvic rectal exam is deferred at this time because the patient has this done on a regular basis at her family physician's office. The remainder of physical exam is essentially unremarkable. IMPRESSION: Perforation of the right tympanic membrane. PLAN: The patient is scheduled to undergo insertion of a Kartush patch into a perforation of the right tympanic membrane under either IV sedation or general anesthesia, depending upon the anesthesia department's preference. ATTENTION RNS IN THE PRE-SURGICAL AREA: I have not ordered any pre-surgical prophylactic antibiotics for this patient. If the pharmacy department sends any pre- surgical prophylactic antibiotics to the pre-surgical area for this patient, please cancel that order and return the medication to the pharmacy department. Also make sure that the patient's account is credited appropriately. I have discussed the risks, benefits and alternative therapies for the above-mentioned procedure and for both sedation/analgesia as well as necessary blood product administration, if indicated, as they pertain to this patient. The patient has indicated his or her understanding and acceptance of the risks and procedures discussed. MMODL / IJN: [id number] /
[~2017-05-15 09:35] MED LIST changes: -ACETAMINOPHEN TAB 500 MG TAB PO ONE; -HYDROmorphone 1 MG/ML 1 ML SYRINGE IVP PRN; +LACTATED RINGERS 1,000 ML IV SCH; -MELOXICAM 7.5 MG TAB PO ONE; +MORPHINE SULFATE 4 MG/ML SYRINGE IV PRN; +Pre Op ABX Message 1 EACH MISC MISCELLANE ONE; +SCOPOLAMINE 1.5MG/72HR PATCH TRANSDERM ONE; -TRANEXAMIC ACID 1,000 MG in SODIUM CHLORIDE 0.9% 100 ML IVPB ONE; -ceFAZolin 3 GM in SODIUM CHLORIDE 0.9% 100 ML IVPB ONE
[2017-05-15 10:31] VITALS: RESP 18; TEMP 98.2
[2017-05-15] MEDS ORDERED: LIDOCAINE 1% INJ 10MG/ML (20 ML MDV) ONE (12:20)
[2017-05-15] MEDS ORDERED: MIDAZOLAM 2 MG/2 ML VIAL ONE (12:20)
[2017-05-15] MEDS ORDERED: fentaNYL (PF) 50 MCG/ML 2 ML AMP ONE (12:20)
[2017-05-15] MEDS ORDERED: PROPOFOL 10 MG/ML 20 ML VIAL IV ONE (12:20)
[2017-05-15] MEDS ORDERED: OFLOXACIN 0.3% OPHTH DROPS 5 ML BOTTLE RIGHT EAR ONE ×2 (12:36→12:52)
[2017-05-15 14:27] VITALS: BP 140/78; PULSE 76
--- NOTE | 2017-05-17 18:04 | OP ---
OPERATIVE REPORT DATE OF SURGERY: 05/15/2017 PREOPERATIVE DIAGNOSIS: Perforation of the right tympanic membrane. POSTOPERATIVE DIAGNOSIS: Perforation of the right tympanic membrane. ANESTHESIA: General anesthesia. OPERATIVE PROCEDURE: Insertion of a 7 mm Kartush patch to a perforation of the right tympanic membrane. OPERATING SURGEON: Dr. Alfred. COMPLICATIONS: None. ESTIMATED BLOOD LOSS: Zero. PROCEDURE: The patient is placed on the operating table in supine position and after uneventful induction and also LMA intubation, satisfactory general anesthesia was obtained. Next the patient's right ear was draped in the usual and customary fashion. Following this, using the Zeiss operating microscope and a #3 aural speculum, the right external auditory canal was cleansed of all wax and debris. Next, a 7 mm Kartush patch was inserted into the perforation of the right tympanic membrane using a pair of alligator forceps without difficulty. Care was taken to make sure that the patch was seated properly. At this point, the procedure was terminated. There were no intraoperative complications. The patient tolerated procedure well and was returned to the recovery room in satisfactory condition. MMODL / IJN: [id number] /
== END 2017-05-15 14:34 | disposition home or self-care (01) ==
LOC: OR 09:35
PROVIDERS: ATTEND Otolaryngology
DX: H72.91 Unspecified perforation of tympanic membrane, right ear (principal); I10 Essential (primary) hypertension; Z79.899 Other long term (current) drug therapy; Z79.1 Long term (current) use of non-steroidal anti-inflammatories (NSAID)
CPT/HCPCS: 69610; J2250; J1100; J2405; J2001; J3010; J2704

== ENCOUNTER → 2017-10-06 | Outpatient (CLI) | payer BC ==
[2017-10-06 09:10] LABS: Basophils % (A) 0 %; Eosinophils # (A) 0.1 k/uL (0-0.7); Eosinophils % (A) 2 %; HCT 46.9 % (34.0-46.0); HGB 15.7 gm/dL (11.4-16.0); Lymphocytes # (A) 1.4 k/uL (1.0-4.8); Lymphocytes % (A) 26 %; MCH 32.1 pg (25.0-35.0); MCHC 33.5 g/dL (31.0-37.0); MCV 95.9 fL (80.0-100.0); Mean Platelet Volume 7.1; Monocytes # (A) 0.3 k/uL (0-1.0); Monocytes % (A) 6 %; Neutrophils # (A) 3.2 k/uL (1.3-7.7); Neutrophils % (A) 62 %; Platelet Count 222 k/uL (150-450); RBC 4.89 m/uL (3.80-5.40); RDW 13.2 % (11.5-15.5); WBC 5.2 k/uL (3.8-10.6)
[2017-10-06 09:34] LABS: ALT 30 U/L (9-52); AST 22 U/L (14-36); Albumin 4.4 g/dL (3.5-5.0); Alkaline Phosphatase 64 U/L (38-126); Anion Gap 11 mmol/L; Blood Urea Nitrogen 14 mg/dL (7-17); Calcium 9.8 mg/dL (8.4-10.2); Carbon Dioxide 32 mmol/L (22-30); Chloride 100 mmol/L (98-107); Cholesterol 172 mg/dL (<200); Glucose 98 mg/dL (74-99); HDL Cholesterol 58 mg/dL (40-60); LDL Cholesterol,Calculated 86 mg/dL (0-99); Potassium 4.2 mmol/L (3.5-5.1); Sodium 143 mmol/L (137-145); Total Bilirubin 0.7 mg/dL (0.2-1.3); Triglycerides 139 mg/dL (<150)
== END | disposition home or self-care (01) ==
LOC: LABWHC1 08:09
PROVIDERS: ATTEND Nurse Practitioner Primary Care
DX: Z00.00 Encounter for general adult medical examination without abnormal findings (principal)
CPT/HCPCS: 36415; 80053; 80061; 82306; 84443; 85025

== ENCOUNTER → 2017-11-12 | Outpatient (CLI) | payer BC | END | disposition home or self-care (01) | LOC: LABPAT 12:02 | PROVIDERS: ATTEND Otolaryngology | DX: Z01.818 Encounter for other preprocedural examination (principal); Z01.812 Encounter for preprocedural laboratory examination; I10 Essential (primary) hypertension | CPT/HCPCS: 36415; 84132; 93005 ==

== ENCOUNTER 2017-11-16 08:21 | Day surgery (SDC) | payer BC ==
[2017-11-11 08:55] VITALS: BMI 46.3
--- NOTE | 2017-11-16 04:51 | HP ---
HISTORY AND PHYSICAL CHIEF COMPLAINT: Perforation of the right tympanic membrane. HISTORY OF PRESENT ILLNESS: The patient is a very pleasant 47-year-old female who was recently seen in my office complaining of having noticed a recent decrease in her hearing. The patient had previously undergone an insertion of a Kartush patch in May of 2017. At the time that the patient was seen in my office, clinical examination revealed that the Kartush patch had extruded and the patient once again had a central perforation of the right tympanic membrane. The middle ear space was dry and free of any infection or cholesteatoma. It was recommended that the patient undergo a re-insertion of a Kartush patch under IV sedation with MAC. PAST MEDICAL HISTORY: Past medical history reveals that the patient has no known allergies to medications. Current medications include Diovan. Previous surgeries include multiple sets of ventilation tubes in both ears, insertion of Kartush patch x1, adenoidectomy, tonsillectomy, 2 knee replacements, and a herniorrhaphy. REVIEW OF SYSTEMS: Review of systems is positive with respect to the cardiovascular system for hypertension. The remainder of the review of systems is essentially unremarkable. PHYSICAL EXAMINATION: This patient is a very pleasant 47-year-old female who is alert and cooperative. HEENT EXAMINATION: Patient is normocephalic. Left tympanic membrane and middle ear space is free of any fluid or infection. Examination of the right ear reveals a central perforation of the right tympanic membrane. The middle ear space is dry and free of any infection. Pupils are equal, round and react to light and accommodation. Extraocular movements within normal limits. Intranasal examination reveals moderate septal deviation with compensatory hypertrophy of inferior turbinates. Examination of oropharynx and the remainder of the head and neck exam including cranial nerves 2 through 12 are within normal limits. CHEST/CARDIOVASCULAR: Both lung asencio are clear to percussion and auscultation. The patient is in sinus rhythm. S1, S2 are present without any murmurs, S3s or S4s. Peripheral pulses are bilaterally symmetrical. ABDOMEN: There is no evidence of any masses, megaly, or tenderness. The abdomen is soft. Skin is unremarkable. Musculoskeletal and neurological are within normal limits. PELVIC/RECTAL EXAM: The pelvic rectal exam is deferred at this time because the patient has this done on a regular basis at her family physician's office. The remainder of the physical exam is unremarkable. IMPRESSION: Perforation of the right tympanic membrane. PLAN: The patient is scheduled undergo insertion of a Kartush patch to a perforation of the right tympanic membrane under IV sedation in the a.m. ATTENTION RNS IN THE PRE-SURGICAL AREA: I have not ordered any pre-surgical prophylactic antibiotics for this patient. If the pharmacy department sends any pre- surgical prophylactic antibiotics to the pre-surgical area for this patient, that medication should be returned to the pharmacy department, the order canceled, and make sure that the patient's account is credited appropriately. I have discussed the risks, benefits and alternative therapies for the above-mentioned procedure and for both sedation/analgesia as well as necessary blood product administration, if indicated, as they pertain to this patient. The patient has indicated his or her understanding and acceptance of the risks and procedures discussed. MMODL / IJN: [id number] /
[~2017-11-16 08:21] MED LIST changes: +HYDROmorphone 0.5 MG/0.5 ML SYRINGE IVP PRN; +LIDOCAINE 1% 20 ML VIAL (10MG/ML) FOR IV START INTRADERMA PRN; -MIDAZOLAM 2 MG/2 ML VIAL IV PRN; -MORPHINE SULFATE 4 MG/ML SYRINGE IV PRN
[2017-11-16] MEDS ORDERED: fentaNYL (PF) 50 MCG/ML 2 ML AMP ONE (10:09)
[2017-11-16] MEDS ORDERED: LIDOCAINE 1% INJ 10MG/ML (20 ML MDV) ONE (10:09)
[2017-11-16] MEDS ORDERED: KETAMINE 10 MG/ML 20 ML VIAL ONE (10:09)
[2017-11-16] MEDS ORDERED: PROPOFOL 10 MG/ML 20 ML VIAL IV ONE (10:09)
[2017-11-16] MEDS ORDERED: MIDAZOLAM 2 MG/2 ML VIAL ONE (10:09)
[2017-11-16] MEDS ORDERED: OFLOXACIN 0.3% OTIC DROPS 5 ML BTL RIGHT EAR ONE (10:24)
[2017-11-16 10:48] VITALS: TEMP 97.2
[2017-11-16 11:13] VITALS: RESP 18
[2017-11-16 11:55] VITALS: PULSE 73
[2017-11-16 11:56] VITALS: BP 127/79
--- NOTE | 2017-11-17 04:48 | OP ---
OPERATIVE REPORT DATE OF SURGERY: 11/16/2017 PREOPERATIVE DIAGNOSIS: Perforation of the right tympanic membrane. POSTOPERATIVE DIAGNOSIS: Perforation of the right tympanic membrane. ANESTHESIA: IV sedation with MAC. OPERATIVE PROCEDURE: Insertion of a 7 mm Kartush patch to a perforation of the right tympanic membrane. OPERATING SURGEON: Dr. Alfred. COMPLICATIONS: None. ESTIMATED BLOOD LOSS: Zero. OPERATIVE PROCEDURE: The patient was placed on operating table in supine position. After uneventful IV sedation, satisfactory sedation was obtained. Next the patient's right ear was draped in usual customary fashion. Next, the previously extruded Kartush patch along with wax and debris was removed from the patient's right external auditory canal using a pair of alligator forceps and a Hallpike tool. Inspection revealed that the perforation has actually decreased in size. Initially, it was felt that a larger patch would be helpful, but at this point, it was decided to reinsert the same size patch noting that it would have greater area coverage because of the smaller perforation. Therefore, a 7 mm Kartush pack was inserted using a pair of alligator forceps in the usual customary fashion. A Wiley needle was used to make sure that the patch was properly seated. At this point, the procedure was terminated. There were no intraoperative complications. The patient tolerated the procedure well and was returned to recovery room in satisfactory condition. MMODL / IJN: [id number] /
== END 2017-11-16 11:53 | disposition home or self-care (01) ==
LOC: OR 08:21
PROVIDERS: ATTEND Otolaryngology
DX: H72.91 Unspecified perforation of tympanic membrane, right ear (principal); I10 Essential (primary) hypertension; Z79.899 Other long term (current) drug therapy; Z79.1 Long term (current) use of non-steroidal anti-inflammatories (NSAID)
CPT/HCPCS: 81025; 69610; J2250; J1100; J2405; J2001; J3010; J2704

== ENCOUNTER → 2018-05-24 | Outpatient (CLI) | payer BC ==
--- NOTE | 2018-05-25 16:05 | MM ---
Reason for exam: clinical finding. Last mammogram was performed 1 year and 8 months ago. History: Patient had first child at age 31. Family history of breast cancer in mother at age 58. Taking hormonal contraceptives for 5 years. Indicated problem(s): palpable abnormality in the left breast. Physical Findings: Nurse Summary: Palpable under left breast. MG 3D Diag Mammo W/Cad TONY Bilateral CC and MLO view(s) were taken. Prior study comparison: October 06, 2016, left breast MG 3d diag mammo w/cad LT. April 16, 2016, bilateral MG 3d screening mammo w/cad. There are scattered fibroglandular densities. Chronic nodularity at 3 o'clock in the left breast. New focal asymmetry at the palpable site far posteriorly and superficial tissues, possibly involving the dermal layer at 5 o'clock posteriorly on the left. These results were verbally communicated with the patient and result sheet given to the patient on 05/24/18. ASSESSMENT: Probably benign, BI-RAD 3 RECOMMENDATION: Follow-up diagnostic mammogram and ultrasound of the left breast in 3 months. SHORTY
--- NOTE | 2018-05-25 16:21 | USB ---
Reason for exam: clinical finding. History: Patient had first child at age 31. Family history of breast cancer in mother at age 58. Taking hormonal contraceptives for 5 years. Indicated problem(s): palpable abnormality in the left breast. US Breast LT Left complete breast ultrasound includes all four quadrants, the retroareolar region and axilla. Finding demonstrates axillary node noted. a 0.8 x 0.5 x1.3 oval irregular hypoechoic skin lesion at the BB site involving the dermal layer and possible sebaceous cyst will need a 3 month follow up. A 0.9 x 0.4 x0.8 cm oval hypoechoic lesion at 2 o'clock is likely a debris filled cyst and can also be assessed at the 3 month follow up. A 0.6 x 0.5 x 0.6 cm oval irregular hypoechoic lesion at 2 o'clock possible collapsing cyst, also to be assessed at the 3 month follow up. A dermatology referral should be considered for the palpable lesion partially involving the dermal layer. A sebaceous cyst is in the differential. These results were verbally communicated with the patient and result sheet given to the patient on 05/24/18. ASSESSMENT: Probably benign, BI-RAD 3 Re-evaluate in 3 months RECOMMENDATION: Clinical management of the palpable site in the left breast; consider a dermatology referral Ultrasound and follow-up diagnostic mammogram of the left breast in 3 months. SHORTY
== END ==
LOC: RADUSWWP 06:50
PROVIDERS: ATTEND Internal Medicine
DX: R92.8 Other abnormal and inconclusive findings on diagnostic imaging of breast (principal); N63.23 Unspecified lump in the left breast, lower outer quadrant
CPT/HCPCS: 77062; 77066

== ENCOUNTER → 2018-08-24 | Outpatient (CLI) | payer BC ==
--- NOTE | 2018-08-25 08:59 | MM ---
Reason for exam: additional evaluation requested from prior study. Last mammogram was performed 3 months ago. History: Patient had first child at age 31. Family history of breast cancer in mother at age 58. Taking hormonal contraceptives for 5 years. Physical Findings: Nurse did not find any significant physical abnormalities on exam. MG Diagnostic Mammo LT w CAD CC and MLO view(s) were taken of the left breast. Prior study comparison: May 24, 2018, bilateral MG 3d diag mammo w/cad TONY. October 06, 2016, left breast MG 3d diag mammo w/cad LT. The breast tissue is heterogeneously dense. This may lower the sensitivity of mammography. Retroareolar nodularity persists. Ultrasound is recommended. These results were verbally communicated with the patient and result sheet given to the patient on 08/24/18. ASSESSMENT: Incomplete: need additional imaging evaluation, BI-RAD 0 RECOMMENDATION: Ultrasound of the left breast.
--- NOTE | 2018-08-25 09:02 | USB ---
Reason for exam: additional evaluation requested from abnormal screening. History: Patient had first child at age 31. Family history of breast cancer in mother at age 58. Taking hormonal contraceptives for 5 years. US Breast Limited LT Left limited breast ultrasound including focal area of concern, retroareolar and axilla demonstrates a 0.7 x 0.5 x 0.3cm cystic, oval cluster at 12 o'clock, a 1.3 x 1.2 x 0.7cm oval, cystic lesion at 1 o'clock, ductal ectasia at 2 o'clock, a 0.8 x 0.7 x 0.4cm oval, complex, cystic lesion at 2 o'clock, a 0.5 x 1.3 x 0.2cm oval, complex, cystic, sebaceous cyst at 5 o'clock, ductal ectasia at the posterior nipple and a 2.3 x 2.0 x 1.0cm axilla node. These results were verbally communicated with the patient and result sheet given to the patient on 08/24/18. ASSESSMENT: Probably benign, BI-RAD 3 RECOMMENDATION: Ultrasound of the left breast in 6 months.
== END | disposition home or self-care (01) ==
LOC: RADMAMWWP 14:13
PROVIDERS: ATTEND Internal Medicine
DX: R92.8 Other abnormal and inconclusive findings on diagnostic imaging of breast (principal)
CPT/HCPCS: 77065

== ENCOUNTER → 2019-02-03 | Outpatient (CLI) | payer BC ==
[2019-02-04 00:19] LABS: Albumin 4.3 g/dL (3.80-4.90); Albumin/Globulin Ratio 2.15 (1.60-3.17); Anion Gap 9.9 mmol/L (4.00-12.00); BUN/Creat Ratio 23.33 Ratio (12.00-20.00); Calcium 9.5 mg/dL (8.7-10.3); Carbon Dioxide 31.1 mmol/L (21.6-31.8); Chol/HDL Ratio 3.12; LDL Cholesterol,Calculated 81.8 mg/dL (0.0-131.0); Potassium 3.9 mmol/L (3.5-5.5); Total Protein 6.3 g/dL (6.2-8.2); VLDL Calculation 22.2 mg/dL (5.00-40.00)
== END | disposition home or self-care (01) ==
LOC: LABWHC1 08:01
DX: I10 Essential (primary) hypertension (principal)
CPT/HCPCS: 36415; 80053; 80061; 84443

== ENCOUNTER → 2019-02-17 | Outpatient (CLI) | payer BC | LOC: LABPAT 08:42 | PROVIDERS: ATTEND Anesthesiology | DX: Z01.818 Encounter for other preprocedural examination (principal); Z01.812 Encounter for preprocedural laboratory examination | CPT/HCPCS: 93005 ==

== ENCOUNTER 2019-02-21 08:37 | Day surgery (SDC) | payer BC ==
[2019-02-16 15:06] VITALS: BMI 49.8
--- NOTE | 2019-02-21 07:16 | HP ---
HISTORY AND PHYSICAL CHIEF COMPLAINT: Perforation of the right tympanic membrane with extrusion of a right Kartush patch. HISTORY OF PRESENT ILLNESS: This patient is a 48-year-old female who was recently seen in my office for evaluation of possible extruded Kartush patch from her right ear. The patient underwent insertion of a Kartush patch in November of 2017. She has not had any problems. However, recently she was at her family physician's office, who noticed that the patch had come out of the right ear. At the time that she was seen in my office clinical examination revealed that the Kartush patch had extruded from the right extruded from the perforation of the right tympanic membrane. It was recommended to the patient that she undergo a re- insertion of a Kartush patch to the perforation of the right tympanic membrane under IV sedation with MAC. PAST MEDICAL HISTORY: She has no .allergies to medications. CURRENT MEDICATIONS: Include Diovan. PREVIOUS SURGERIES: Include insertion of Kartush patch x2, adenoidectomy, tonsillectomy, two knee replacements, multiple sets of ventilation tubes in both ears, and a herniorrhaphy. REVIEW OF SYSTEMS: Positive with respect with respect to the cardiovascular system for hypertension. The remainder of the review of systems is essentially unremarkable. PHYSICAL EXAMINATION: This patient is a 48-year-old female who was alert and cooperative. HEENT EXAMINATION: Patient is normocephalic. Examination left tympanic membrane reveals that the left tympanic membrane in the left middle ear space is free of any fluid or infection. Examination of the right ear reveals the patient has a central perforation encompassing approximately 5%-10% of the of the right tympanic membrane. Pupils are equal, round, react to light and accommodation. Extraocular movements are within normal limits. Intranasal examination reveals moderate septal deviation with compensatory hypertrophy of the inferior turbinates and a moderate amount of mucus on the mucous membrane and draining down the posterior pharynx. Cranial nerves 2 through 12 and remainder of the head and neck exam all within normal limits. CHEST, CARDIOVASCULAR: Both lung asencio are clear to percussion and auscultation. The patient is in regular sinus rhythm. S1, S2 are present without evidence any murmurs. S3s or S4, peripheral pulses are bilaterally symmetrical. ABDOMEN: There is no evidence any masses, megaly or tenderness. The abdomen is soft. Skin is unremarkable. Musculoskeletal and neurological are within normal limits. Pelvic, rectal examination is deferred at this time because the patient has this done on a regular basis at her family physician's office. The remainder of the physical exam is essentially unremarkable. IMPRESSION: Perforation of the right tympanic membrane with extruded Kartush patch. PLAN: The patient is scheduled to undergo insertion of a new Kartush patch to a perforation of the right tympanic membrane under IV sedation with MAC depending upon General Anesthesia's preference. ATTENTION RNS IN THE PRE-SURGICAL AREA: I have not ordered any pre-surgical prophylactic antibiotics for this patient. If the Pharmacy Department sends any pre- surgical prophylactic antibiotics to the pre-surgical area for this patient, that order should be cancelled and the medication should be returned to the Pharmacy Department. Please make sure that the patient's account is credited appropriately. I have discussed the risks, benefits and alternative therapies for the above-mentioned procedure and for both sedation/analgesia as well as necessary blood product administration, if indicated, as they pertain to this patient. The patient has indicated his or her understanding and acceptance of the risks and procedures discussed. MMODL / IJN: [id number] /
[~2019-02-21 08:37] MED LIST changes: -ONDANSETRON 4 MG/2 ML VIAL IVP ONE; -SCOPOLAMINE 1.5MG/72HR PATCH TRANSDERM ONE
[2019-02-21] MEDS ORDERED: fentaNYL (PF) 50 MCG/ML 2 ML AMP ONE (09:57)
[2019-02-21] MEDS ORDERED: PROPOFOL 10 MG/ML 20 ML VIAL IV ONE (09:57)
[2019-02-21] MEDS ORDERED: MIDAZOLAM 2 MG/2 ML VIAL ONE (09:57)
[2019-02-21] MEDS ORDERED: KETOROLAC 30 MG/ML 1 ML VIAL ONE (09:57)
[2019-02-21] MEDS ORDERED: OFLOXACIN 0.3% OPHTH DROPS 5 ML BOTTLE RIGHT EAR ONE ×3 (09:59→10:31)
[2019-02-21 11:01] VITALS: TEMP 97.7
[2019-02-21 11:30] VITALS: RESP 18
[2019-02-21 11:54] VITALS: BP 126/84; PULSE 76
--- NOTE | 2019-02-21 19:27 | OP ---
OPERATIVE REPORT PREOPERATIVE DIAGNOSIS: Perforation of the right tympanic membrane. POSTOPERATIVE DIAGNOSIS: Perforation of the right tympanic membrane. ANESTHESIA: General. OPERATIVE PROCEDURE: Insertion of a 7 mm Kartush patch to a perforation of the right tympanic membrane. SURGEON: Dr. Eliseo Alfred. COMPLICATIONS: None. ESTIMATED BLOOD LOSS: Zero. OPERATIVE PROCEDURE DESCRIPTION: The patient was placed on the operating table in supine position. After uneventful LMA insertion, satisfactory general anesthesia was obtained. Next, the patient's right ear was draped in the usual and customary fashion. Using the Zeiss operating microscope and a #3 aural speculum, the right external auditory canal was cleansed of all wax, debris and the previously extruded old Kartush patch. The old patch was removed and discarded. Next, the inspection revealed that the actual perforation appeared again to have shrunk slightly, but it was elected to reinsert a 7 mm Kartush patch again. Therefore, a 7 mm Kartush patch was dipped in Floxin otic solution and was grasped with a pair of otologic alligator forceps by the lower leaf. The lower leaf was then inserted into the perforation, and upon releasing the patch, it expanded and the patch itself seated quite nicely. Care was taken to inspect all edges of the patch using a 1 mm right-angle to raise the edges of the patch to make sure that all the edges of the lower leaf were within the middle ear space, and in fact they were. At this point, the procedure was terminated. There were no intraoperative complications. The patient tolerated the procedure well and was returned to the recovery room in satisfactory condition. MMODL / IJN: [id number] /
== END 2019-02-21 12:10 | disposition home or self-care (01) ==
LOC: OR 08:37
PROVIDERS: ATTEND Otolaryngology
DX: H72.91 Unspecified perforation of tympanic membrane, right ear (principal); T85.698A Other mechanical complication of other specified internal prosthetic devices, implants and grafts, initial encounter; J34.2 Deviated nasal septum; J34.3 Hypertrophy of nasal turbinates; I10 Essential (primary) hypertension; M19.90 Unspecified osteoarthritis, unspecified site; Z96.653 Presence of artificial knee joint, bilateral; Z79.899 Other long term (current) drug therapy
CPT/HCPCS: 81025; 69610; J2250; J3010; J1885; J2704

== ENCOUNTER → 2020-02-06 | Outpatient (CLI) | payer BC ==
--- NOTE | 2020-02-07 13:33 | MM ---
Reason for exam: additional evaluation requested from prior study. Last mammogram was performed 1 year and 5 months ago. History: Patient had first child at age 31. Family history of breast cancer in mother at age 58. Taking hormonal contraceptives for 5 years. Physical Findings: Nurse did not find any significant physical abnormalities on exam. MG 3D Diag Mammo W/Cad TONY Bilateral CC and MLO view(s) were taken. Prior study comparison: August 24, 2018, left breast MG diagnostic mammo LT w CAD. May 24, 2018, bilateral MG 3d diag mammo w/cad TONY. The breast tissue is heterogeneously dense. This may lower the sensitivity of mammography. Finding #1: There is a 10 mm equal density (isodense) mass in the subareolar position of the left breast. Finding #2: There are grouped/clustered calcifications in the subareolar position of the left breast. There is a chronic nodularity in the left breast. These results were verbally communicated with the patient and result sheet given to the patient on 02/06/20. ASSESSMENT: Suspicious, BI-RAD 4 RECOMMENDATION: Ultrasound and stereotactic core biopsy of the left breast. Called Dr. Blanchard's office with mammographic findings and has scheduled an appointment for the patient for 02/17/20 at 7:[address] Leigh. Biopsy scheduled for 02/17/20 at 8:00. PRELIMINARY REPORT CALLED AND FAXED TO DR. LEIGH ON 02/07/20.
--- NOTE | 2020-02-07 13:34 | USB ---
Reason for exam: additional evaluation requested from abnormal screening. History: Patient had first child at age 31. Family history of breast cancer in mother at age 58. Taking hormonal contraceptives for 5 years. US Breast Limited LT Technologist: Shannon Thayer Left limited breast ultrasound including focal area of concern, retroareolar and axilla demonstrates a 1.5 x 1.4 x 0.8cm oval, cystic lesion at the nipple. These results were verbally communicated with the patient and result sheet given to the patient on 02/06/20. ASSESSMENT: Suspicious, BI-RAD 4 RECOMMENDATION: Stereotactic core biopsy of the left breast. Called Dr. Blanchard's office with mammographic findings and has scheduled an appointment for the patient for 02/17/20 at 7:[address] Leigh. Biopsy scheduled for 02/17/20 at 8:00. PRELIMINARY REPORT CALLED AND FAXED TO DR. LEIGH ON 02/07/20.
== END | disposition home or self-care (01) ==
LOC: RADMAMWWP 12:46
PROVIDERS: ATTEND Family Medicine
DX: R92.8 Other abnormal and inconclusive findings on diagnostic imaging of breast (principal)
CPT/HCPCS: 77062; 77066

== ENCOUNTER → 2020-02-08 | Outpatient (CLI) | payer BC ==
[2020-02-08 08:38] LABS: Basophils % (A) 1 %; Eosinophils # (A) 0.1 k/uL (0-0.7); Eosinophils % (A) 2 %; HCT 45.9 % (34.0-46.0); HGB 15.3 gm/dL (11.4-16.0); Lymphocytes # (A) 1.1 k/uL (1.0-4.8); Lymphocytes % (A) 22 %; MCH 32.3 pg (25.0-35.0); MCHC 33.3 g/dL (31.0-37.0); MCV 97.1 fL (80.0-100.0); Mean Platelet Volume 7.6; Monocytes # (A) 0.4 k/uL (0-1.0); Monocytes % (A) 7 %; Neutrophils # (A) 3.2 k/uL (1.3-7.7); Neutrophils % (A) 65 %; Platelet Count 211 k/uL (150-450); RBC 4.73 m/uL (3.80-5.40); RDW 13.1 % (11.5-15.5)
[2020-02-08 08:43] LABS: Appearance,Urine Clear (Clear); Bilirubin,Urine Negative (Negative); Blood,Urine Negative (Negative); Color,Urine Light Yellow; Glucose,Urine (UA) Negative (Negative); Ketones,Urine Negative (Negative); Leukocyte Esterase,Urine Negative (Negative); Nitrite,Urine Negative (Negative); PH, Urine 7.5 (5.0-8.0); Protein,Urine Negative (Negative); Specific Gravity,Urine 1.006 (1.001-1.035); Urobilinogen,Urine <2.0 mg/dL (<2.0)
[2020-02-08 18:51] LABS: African American GFR (CKD) 117.1 (60.0-200.0); Albumin 4.2 g/dL (3.80-4.90); Albumin/Globulin Ratio 1.83 (1.60-3.17); BUN/Creat Ratio 22.86 Ratio (12.00-20.00); Calcium 9.1 mg/dL (8.7-10.3); Chol/HDL Ratio 3.04; Globulin 2.3 g/dL (1.6-3.3); Potassium 4.4 mmol/L (3.5-5.5); Total Bilirubin 0.8 mg/dL (0.2-1.2); Total Protein 6.5 g/dL (6.2-8.2)
[2020-02-08 19:08] LABS: Microalbumin Creatinine Ratio <30 mg/g Creat (0-30); Urine Creatinine 27.1 mg/dL
== END | disposition home or self-care (01) ==
LOC: LABWHC1 07:52
PROVIDERS: ATTEND Family Medicine
DX: M85.80 Other specified disorders of bone density and structure, unspecified site (principal); I10 Essential (primary) hypertension
CPT/HCPCS: 36415; 80053; 80061; 81003; 82043; 82306; 82570; 84443; 85025

== ENCOUNTER → 2020-02-17 | Day surgery (SDC) | payer BC ==
[2020-02-17 07:29] VITALS: RESP 16
--- NOTE | 2020-02-17 08:02 | P.GSHP ---
History of Present Illness H&P Date: 02/17/20 Chief Complaint: Abnormal left breast mammogram and ultrasound Joaquina is a 49 year old white female seen in consultation for Dr. Blanchard who had a bilateral mammogram performed on . This revealed a 10 mm equal density mass in the subareolar position of the left breast. There were grouped/clustered calcifications in the subareolar position of the left breast as well. This chronic nodularity in the left breast. An ultrasound was recommended nothing of concern was noted in the right breast. On the ultrasound and 1.5 x 1.4 with a cystic lesion was identified. It was felt that the patient should undergo a stereotactic core biopsy of the left breast. Joaquina does not feel anything of concern in her breast. This was a routine mammogram. She is not complaining of any lumps masses nodules in her breast. She is to complain of any abnormal nipple discharge or skin changes. Caffeine: 1 cup/day Nicotine: Negative, stopped 22 years ago no secondhand smoke exposure Theophylline: Occasionally Hormones: Negative Family history: mother: breast cancer at 58 paternal grandmother: cervical cancer paternal aunt: colon cancer Hormonal history: Menarche: 10 , 1 miscarriage, breast fed: -. age at first : 31 menopause: IUD in place no periods since 2016 BCP: 5 years Surgical history: 1. Tonsillectomy 2. tubal ligation 3. Bilateral knee replacement 4. Permanent tube in the right ear 5. Umbilical hernia repair 6. 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 Eyes: denies blurred vision, denies pain Ears: deny: decreased hearing, tinnitus Ears, nose, mouth and throat: Denies headache, Denies sore throat - Breasts Breasts: bilateral: as per HPI - Cardiovascular Cardiovascular: Reports high blood pressure, Denies chest pain, Denies shortness of breath - Respiratory Comment: former smoker Respiratory: Denies cough, Denies 7 - Gastrointestinal Gastrointestinal: Denies abdominal pain, Denies diarrhea, Denies nausea, Denies vomiting - Genitourinary (Female) Genitourinary: Denies dysuria, Denies hematuria - Menstruation Menstruation: Reports premenarcheal - Musculoskeletal Musculoskeletal: Reports as per HPI - Integumentary Integumentary: Denies pruritus, Denies rash - Neurological Neurological: Denies numbness, Denies weakness - Psychiatric Psychiatric: Denies anxiety, Denies depression - Endocrine Endocrine: Denies fatigue, Denies weight change - Hematologic/Lymphatic Comment: none - Allergic/Immunologic Allergic/Immunologic: Reports as per HPI Past Medical History Past Medical History: Hypertension, Osteoarthritis (OA) Additional Past Medical History / Comment(s): CHRONIC EAR INFECTIONS History of Any Multi-Drug Resistant Organisms: None Reported Past Surgical History: Cholecystectomy, Hernia Repair, Joint Replacement, Tonsillectomy, Tubal Ligation Additional Past Surgical History / Comment(s): BILATERAL KNEE ARTHROPLASTY. UMB HERNIA. PERMANENT TUBE IN RIGHT EAR Past Anesthesia/Blood Transfusion Reactions: No Reported Reaction Past Psychological History: No Psychological Hx Reported Smoking Status: Former smoker Past Alcohol Use History: Occasional Additional Past Alcohol Use History / Comment(s): CASUAL SMOKER, QUIT 20 YRS AGO Past Drug Use History: None Reported - Past Family History Mother History Unknown: Yes Family Medical History: Cancer Additional Family Medical History / Comment(s): BREAST Father History Unknown: Yes Family Medical History: No Reported History Sister(s) Family Medical History: No Reported History Daughter(s) History Unknown: Yes Son(s) History Unknown: Yes Medications and Allergies Home Medications Medication Instructions Recorded Confirmed Type Naproxen Sodium [Aleve] 220 - 440 mg PO Q6H PRN 12/08/16 02/17/20 History Valsartan/Hydrochlorothiazide 1 tab PO DAILY 12/08/16 02/17/20 History [Valsartan-Hctz 80-12.5 mg Tab] Allergies Allergy/AdvReac Type Severity Reaction Status Date / Time No Known Allergies Allergy Verified 02/17/20 07:17 Surgical - Exam Vital Signs Temp Pulse Resp BP 98.2 F 89 16 127/85 02/17/20 07:18 02/17/20 07:18 02/17/20 07:18 02/17/20 07:18 BMI 51.1 - General obese - Eyes PERRL - ENT no hearing loss, no congestion - Neck no masses, trachea midline - Respiratory normal expansion, normal respiratory effort, clear to auscultation - Cardiovascular Rhythm: regular Heart Sounds: normal: S1, S2 - Abdomen Abdomen: soft, non tender, no guarding, no rigid, no rebound - Integumentary normal turgor - Neurologic no disoriented, no combative - Psychiatric oriented to time, oriented to person, oriented to place, speech is normal, memory intact Breast Exam: BRA: 42DDD inspection: bilateral grade 3 ptosis palpation: Right breast: Multi-positional exam fibrocystic changes, no dominant masses or nodules of concern Right axilla: No adenopathy of concern left breast: Multiple positional exam no dominant masses or nodules of concern, fibrocystic changes Left axilla: No adenopathy of concern Results Mammogram and ultrasound results reviewed Assessment and Plan Assessment: Impression: 1. Abnormal mammogram and ultrasound left breast 2. Hypertension 3. Family history of cancer Plan: 1. Left breast stereotactic core biopsy 2. Follow-up 1 week after biopsy for results CC: Dr. Blanchard Risks and benefits of procedure discussed with the patient. Options such as watchful waiting or resection in the operating room were discussed but not recommended. Risks include but are not limited to bleeding, infection, reaction to the anesthetic. In the case if this were discordant or if the lesion could not be seen radiographically for stereo biopsy it may be necessary to do needle localization and open biopsy in the operating room. Additionally if this were atypical a malignancy then resection the operating room would also be warranted. She understands and wishes to proceed. encounter 30 minutes, > 50% of time in planning and counselling
--- NOTE | 2020-02-17 09:01 | P.PCN ---
Date of Procedure: 02/17/20 Preoperative Diagnosis: Microcalcifications of concern in the left breast lateral periareolar area Postoperative Diagnosis: Same Procedure(s) Performed: Stereotactic core biopsy microcalcifications left breast as well as cyst aspiration Anesthesia: local Surgeon: Audrey Leigh Pathology: other (Cystic fluid, breast tissue with microcalcifications) Condition: stable Disposition: same day Indications for Procedure: Microcalcifications of concern left breast Operative Findings: Cystic fluid, microcalcifications Description of Procedure: The patient is a 49-year-old white female with a mammographic abnormality in the left breast revealing microcalcifications in the vicinity of the cystic lesion in the lateral periareolar region. Stereotactic core biopsy was recommended for the microcalcifications. The risks and benefits of procedure were discussed with the patient and she wished to proceed. The patient was taken to the stereotactic core biopsy room and positioned on the table. A make up operator film was obtained. A lateral to medial approach was utilized. The microcalcifications were seen however these were in the vicinity of what appeared to be a cystic lesion. The skin was prepped using Betadine. 20 mL of 1% lidocaine was used to anesthetize the area of concern. 22-gauge needle was inserted into the region and cystic fluid was obtained. Following this an needle which was a 9-gauge Petit vacuum-assisted core rotating biopsy needle was driven to the correct coordinates. Pre-5 films were obtained. The needle was fired and post films showed the needle to be in the correct location. 5 core samples were obtained and radiograph of the specimen revealed microcalcifications were present. At the termination of the case there was cystic fluid 0.5 mL as well as breast tissue with calcifications present and it was sent to pathology. There appeared to be resolution of the cystic lesion on the films. A trimark marker was placed. The patient tolerated the procedure in stable condition. The specimen was sent to pathology.
[2020-02-17 09:08] VITALS: BP 112/78; PULSE 75; TEMP 98.6
--- NOTE | 2020-02-17 15:42 | MM ---
EXAMINATION TYPE: MG stereo VAD BX LT DATE OF EXAM: 02/17/2020 COMPARISON: 09/21/2019 mammogram CLINICAL HISTORY: Abnormal calcifications TECHNIQUE: Stereotactic guided core biopsy of left breast. FINDINGS: The procedure was performed by surgery. Targeting was provided by surgery radiology supervision. There is a rounded density potentially could be a cyst with the calcifications. This was attempted aspiration initially the sample sent to pathology. Significant loss of volume was not evident. Biopsy was then performed. Sample: Mammographic sample was obtained and demonstrates calcifications scattered within the sample. Postprocedure mammogram: Additional ordered Postprocedure mammogram was performed. The biopsy marker is within the expected region of the prior calcifications which is been resected. IMPRESSION: Successful stereotactic core biopsy left breast calcifications. Recommendations: 1. Recommendations are pending pathology results. 2. Review of cyst aspiration and core samples for pathology correlation is recommended. Pathology Results: Benign LEFT BREAST LESION, NEEDLE CORE BIOPSIES: Benign fibrocystic spectrum lesion with stromal fibrosis, duct cystic changes and apocrine metaplasia. Recommendation Follow up mammogram of the left breast in 6 months. SHORTY
== END ==
LOC: RADMAMWWP 06:59
PROVIDERS: ATTEND Surgery
DX: N63.42 Unspecified lump in left breast, subareolar (principal); N60.82 Other benign mammary dysplasias of left breast; N60.32 Fibrosclerosis of left breast; Z80.3 Family history of malignant neoplasm of breast; I10 Essential (primary) hypertension; M19.90 Unspecified osteoarthritis, unspecified site; Z87.891 Personal history of nicotine dependence; Z79.899 Other long term (current) drug therapy; Z96.653 Presence of artificial knee joint, bilateral; Z98.51 Tubal ligation status; Z98.890 Other specified postprocedural states
CPT/HCPCS: 19081; 88108; 88305; 76098; A4648; J2001

== ENCOUNTER → 2020-02-24 | Outpatient (CLI) | payer BC ==
[2020-02-24 14:26] VITALS: BP 144/87; PULSE 99; RESP 16; TEMP 98.4
--- NOTE | 2020-02-24 14:26 | P.PN ---
Subjective Progress Note Date: 02/24/20 Principal diagnosis: Fibrocystic breast changes Joaquina is a 49-year-old white female status post cyst aspiration of the left breast and stereotactic core biopsy on . Cyst aspiration revealed a cellular debris consistent with cyst contents, the core biopsy revealed benign fibrocystic spectrum lesion. The area was felt to be concordant with that which was biopsied. The patient tolerated the procedure without any difficulty. Objective - Vital Signs Vital signs: Intake & Output 02/23/20 02/24/20 02/24/20 18:59 06:59 18:59 Weight 136.078 kg - Exam BMI 51.5 - Constitutional General appearance: Present: morbidly obese - EENT Eyes: Present: EOMI ENT: Present: hearing grossly normal - Respiratory Respiratory: bilateral: CTA - Cardiovascular Heart sounds: normal: S1, S2 - Musculoskeletal Musculoskeletal: Present: gait normal - Psychiatric Psychiatric: Present: A&O x's 3, appropriate affect, intact judgment & insight - Additional findings Additional findings: Left breast: Biopsy site mild ecchymosis no hematoma or infection Assessment and Plan Assessment: Impression: 1. Fibrocystic changes left breast Plan: 1. Repeat left breast mammogram and physician exam in 6 months Cc: Dr. Blanchard encounter 10 minutes, > 50% of time in planning and counselling
== END | disposition home or self-care (01) ==
LOC: WWCWWP 14:03
PROVIDERS: ATTEND Surgery
DX: Z53.9 Procedure and treatment not carried out, unspecified reason (principal)

== ENCOUNTER → 2020-09-05 | Outpatient (CLI) | payer BC ==
--- NOTE | 2020-09-05 13:40 | MM ---
Reason for exam: follow-up at short interval from prior study. Last mammogram was performed 7 months ago. History: Patient had first child at age 31. Family history of breast cancer in mother at age 58. Benign MG stereo VAD BX LT of the left breast, February 17, 2020. Taking hormonal contraceptives for 5 years. Physical Findings: Nurse did not find any significant physical abnormalities on exam. MG 3D Diag Mammo W/Cad LT CC, MLO, and XCCL view(s) were taken of the left breast. Prior study comparison: February 06, 2020, bilateral MG 3d diag mammo w/cad TONY. August 24, 2018, left breast MG diagnostic mammo LT w CAD. The breast tissue is heterogeneously dense. This may lower the sensitivity of mammography. No significant new findings when compared with previous films. These results were verbally communicated with the patient and result sheet given to the patient on 09/05/20. ASSESSMENT: Benign, BI-RAD 2 RECOMMENDATION: Routine screening mammogram of both breasts in 6 months. Back on schedule for February 2021.
== END | disposition home or self-care (01) ==
LOC: RADMAMWWP 12:51
PROVIDERS: ATTEND Surgery
DX: R92.2 Inconclusive mammogram (principal); Z80.3 Family history of malignant neoplasm of breast
CPT/HCPCS: 77061; 77065

== ENCOUNTER → 2021-04-25 | Outpatient (CLI) | payer BC ==
--- NOTE | 2021-04-29 14:08 | MM ---
Reason for exam: screening (asymptomatic). Last mammogram was performed 8 months ago. History: Patient had first child at age 31. Family history of breast cancer in mother at age 58. Benign MG stereo VAD BX LT of the left breast, February 17, 2020. Taking hormonal contraceptives for 5 years. Physical Findings: A clinical breast exam by your physician is recommended on an annual basis and results should be correlated with mammographic findings. MG 3D Screening Mammo W/Cad Bilateral CC and MLO view(s) were taken. Prior study comparison: September 05, 2020, left breast MG 3d diag mammo w/cad LT. February 06, 2020, bilateral MG 3d diag mammo w/cad TONY. The breast tissue is heterogeneously dense. This may lower the sensitivity of mammography. Previous mammotome biopsy in the left breast, stable adjacent chronic nodules. There is additional scattered chronic nodularity in the left breast. There is no discrete abnormality. ASSESSMENT: Benign, BI-RAD 2 RECOMMENDATION: Routine screening mammogram of both breasts in 1 year.
== END | disposition home or self-care (01) ==
LOC: RADMAMWWP 14:32
PROVIDERS: ATTEND Surgery
DX: Z12.31 Encounter for screening mammogram for malignant neoplasm of breast (principal); Z80.3 Family history of malignant neoplasm of breast
CPT/HCPCS: 77063; 77067

== ENCOUNTER → 2022-05-05 | Outpatient (CLI) | payer BC ==
--- NOTE | 2022-05-06 08:50 | MM ---
Reason for Exam: Screening (asymptomatic). Last mammogram was performed 1 year(s) and 1 month(s) ago. Patient History: Menarche at age 9. First Full-Term at age 31. Late child-bearing (after 30). Postmenopausal. Patient used Hormonal Contraceptives for 5 years. 02/17/2020, Benign Core Biopsy on the left side. Mother had breast cancer, age 58. Risk Values: Yarely 5 year model risk: 2.8%. NCI Lifetime model risk: 21.1%. Prior Study Comparison: 02/06/2020 Bilateral Diagnostic Mammogram, [facility]. 09/05/2020 Left Diagnostic Mammogram, [facility]. 04/25/2021 Bilateral Screening Mammogram, [facility]. Tissue Density: The breast tissue is heterogeneously dense. This may lower the sensitivity of mammography. Findings: Analyzed By CAD. Left breast biopsy clip. There is no suspicious group of microcalcifications or new suspicious mass in either breast. Overall Assessment: Negative, BI-RAD 1 Management: Screening Mammogram of both breasts in 1 year. A clinical breast exam by your physician is recommended on an annual basis and results should be correlated with mammographic findings. [facility] will attempt to contact patient to return for supplemental views and ultrasound if indicated. Electronically signed and approved by: Noe Jorge DO
== END | disposition home or self-care (01) ==
LOC: RADMAMWWP 16:12
PROVIDERS: ATTEND Family Medicine
DX: Z12.31 Encounter for screening mammogram for malignant neoplasm of breast (principal); Z78.0 Asymptomatic menopausal state; Z80.3 Family history of malignant neoplasm of breast
CPT/HCPCS: 77063; 77067

== ENCOUNTER → 2022-10-03 | Outpatient (CLI) | payer BC ==
[2022-10-03 16:27] LABS: Basophils # (A) 0.03 X 10*3/uL (0.00-0.10); Basophils % (A) 0.5 %; Eosinophils % (A) 1.8 %; HCT 45.6 % (37.2-46.3); HGB 14.6 g/dL (12.0-15.0); Immature Grans, Automated 0.2 %; Lymphocytes # (A) 1.37 X 10*3/uL (0.90-5.00); Lymphocytes % (A) 24.2 %; MCH 31.6 pg (27.0-32.0); MCV 98.7 fL (80.0-97.0); Mean Platelet Volume 11.3 fL (9.5-12.2); Monocytes # (A) 0.55 X 10*3/uL (0.20-1.00); Monocytes % (A) 9.7 %; NRBC Per 100 WBC 0 /100 WBCS (0.0-0.0); Neutrophils % (A) 63.6 %; Platelet Count 200 X 10*3/uL (140-440); RBC 4.62 X 10*6/uL (4.10-5.20); RDW 12.8 % (11.5-14.5); WBC 5.66 X 10*3/uL (4.50-10.00)
[2022-10-03 16:49] LABS: ALT 19 U/L (8-44); AST 19 U/L (13-35); African American GFR (CKD) 119.4 (60.0-200.0); Albumin 4.2 g/dL (3.8-4.9); Albumin/Globulin Ratio 1.84 (1.60-3.17); Alkaline Phosphatase 76 U/L (41-126); BUN/Creat Ratio 28.32 Ratio (12.00-20.00); Blood Urea Nitrogen 17.5 mg/dL (9.0-27.0); Calcium 9.6 mg/dL (8.7-10.3); Carbon Dioxide 29.2 mmol/L (20.0-27.5); Chloride 100 mmol/L (96-109); Chol/HDL Ratio 2.93 Ratio; Globulin 2.3 g/dL (1.6-3.3); Glucose 106 mg/dL (70-110); LDL Cholesterol,Calculated 98.7 mg/dL (0.0-131.0); Non-African American GFR(CKD) 103.1 (60.0-200.0); Sodium 139 mmol/L (135-145); Total Protein 6.5 g/dL (6.2-8.2); VLDL Calculation 17.26 mg/dL (5.00-40.00)
== END | disposition home or self-care (01) ==
LOC: LABWHC1 08:02
PROVIDERS: ATTEND Family Medicine
DX: I10 Essential (primary) hypertension (principal)
CPT/HCPCS: 36415; 80053; 80061; 84443; 85025

== ENCOUNTER → 2022-11-18 | Outpatient (CLI) | payer BC ==
[2022-11-18 16:13] LABS: Basophils # (A) 0.03 X 10*3/uL (0.00-0.10); Basophils % (A) 0.5 %; Eosinophils # (A) 0.06 X 10*3/uL (0.04-0.35); Eosinophils % (A) 1.1 %; HCT 45.5 % (37.2-46.3); HGB 15.1 d/dL (12.0-15.0); Lymphocytes # (A) 1.29 X 10*3/uL (0.90-5.00); Lymphocytes % (A) 23.4 %; MCH 31.7 pg (27.0-32.0); MCHC 33.2 d/dL (32.0-37.0); MCV 95.6 FL (80.0-97.0); Mean Platelet Volume 10.9 FL (9.5-12.2); Monocytes # (A) 0.49 X 10*3/uL (0.20-1.00); Monocytes % (A) 8.9 %; NRBC Per 100 WBC 0 X 10*3/uL (0.00-0.01); Neutrophils # (A) 3.62 X 10*3/uL (1.80-7.70); Neutrophils % (A) 65.7 %; Platelet Count 215 X 10*3/uL (140-440); RBC 4.76 X 10*6/uL (4.10-5.20); RDW 12.6 % (11.5-14.5); WBC 5.51 X 10*3/uL (4.50-10.00)
== END | disposition home or self-care (01) ==
LOC: LABPAT 12:15
PROVIDERS: ATTEND Obstetrics & Gynecology
DX: Z30.42 Encounter for surveillance of injectable contraceptive (principal); E66.01 Morbid (severe) obesity due to excess calories; I10 Essential (primary) hypertension; I45.10 Unspecified right bundle-branch block; I21.3 ST elevation (STEMI) myocardial infarction of unspecified site; R94.31 Abnormal electrocardiogram [ECG] [EKG]
CPT/HCPCS: 36415; 85025; 93005

== ENCOUNTER 2022-12-01 07:52 | Day surgery (SDC) | payer BC ==
[2022-11-21 15:29] VITALS: BMI 49.9
[~2022-12-01 07:52] MED LIST changes: -DEXAMETHASONE SOD PHOSPHATE 10 MG/ML 1 ML VIAL IV ONE; -HYDROmorphone 0.5 MG/0.5 ML SYRINGE IVP PRN; -LACTATED RINGERS 1,000 ML IV SCH; -LIDOCAINE 1% 20 ML VIAL (10MG/ML) FOR IV START INTRADERMA PRN
[2022-12-01] MEDS ORDERED: SCOPOLAMINE 1 MG/72 HR PATCH TRANSDERM ONE (07:55)
[2022-12-01] MEDS ORDERED: ONDANSETRON 4 MG/2 ML VIAL IVP ONE (07:55)
[2022-12-01] MEDS ORDERED: LACTATED RINGERS 1,000 ML IV SCH (07:55)
[2022-12-01] MEDS ORDERED: DEXAMETHASONE SOD PHOSPHATE 4 MG/ML 1 ML VIAL IV ONE (07:55)
[2022-12-01] MEDS ORDERED: HYDROmorphone 0.5 MG/0.5 ML SYRINGE IVP PRN (07:55)
[2022-12-01] MEDS ORDERED: droPERidol 5 MG/2 ML VIAL IVP ONE (07:55)
[2022-12-01] MEDS ORDERED: LIDOCAINE 1% (10MG/ML) FOR IV START INTRADERMA PRN (07:55)
[2022-12-01] MEDS ORDERED: SUCCINYLCHOLINE CHLORIDE 200 MG/10 ML VIAL IV ONE (10:12)
[2022-12-01] MEDS ORDERED: LIDOCAINE 2% INJ 20 MG/ML (2 ML VIAL) ONE (10:12)
[2022-12-01] MEDS ORDERED: fentaNYL (PF) 50 MCG/ML 2 ML AMP ONE (10:12)
[2022-12-01] MEDS ORDERED: PROPOFOL 10 MG/ML 20 ML VIAL IV ONE (10:12)
--- NOTE | 2022-12-01 10:41 | P.OP ---
Date of Procedure: 12/01/22 Preoperative Diagnosis: Morbid obesity Intrauterine device due for removal Cervical cancer screening Postoperative Diagnosis: Same Procedure(s) Performed: Exam under anesthetic with cervical Pap smear and removal of intrauterine device Anesthesia: RONYA Surgeon: Kelly Gresham Estimated Blood Loss (ml): 0 Urine output (ml): 0 Pathology: other (Cervical Pap smear) Condition: stable Disposition: PACU Indications for Procedure: Adequate visualization of the cervix for Pap smear and IUD removal not possible in the ambulatory setting secondary to patient's body habitus. Operative Findings: Bimanual examination limited by body habitus, no gross pelvic masses palpable. Cervix visualized and appeared free of any gross lesions. IUD strings visualized Description of Procedure: After the patient was met in the preoperative holding area and all questions were answered, she was taken the operating room where anesthetic was administered without incident. Appropriate timeout procedure was undertaken. Bimanual examination was undertaken and was completely limited by the patient's body habitus. No gross vaginal or pelvic masses were palpable. Weighted speculum was placed in the vagina with an anterior retractor. The IUD strings were visualized however the cervix could not be visualized. With additional use of a single-sided speculum ultimately the cervix was visualized. A Pap smear was taken in the usual fashion. The IUD strings were grasped with a ring forcep and the device was removed intact. No bleeding was noted. The instruments were removed and the patient was awoken from anesthetic and transported recovery area in good condition.
[2022-12-01 10:49] VITALS: TEMP 97.9
[2022-12-01 11:16] VITALS: RESP 16
[2022-12-01 11:36] VITALS: BP 153/81; PULSE 76
== END 2022-12-01 11:44 | disposition home or self-care (01) ==
LOC: OR 07:52
PROVIDERS: ATTEND Obstetrics & Gynecology
DX: Z30.432 Encounter for removal of intrauterine contraceptive device (principal); E66.01 Morbid (severe) obesity due to excess calories; I10 Essential (primary) hypertension; Z87.891 Personal history of nicotine dependence; M19.90 Unspecified osteoarthritis, unspecified site; Z68.42 Body mass index [BMI] 45.0-49.9, adult
CPT/HCPCS: 81025; 58301; J0330; J1100; J2405; J3010; J2704; J2001

== ENCOUNTER → 2023-07-14 | Outpatient (CLI) | payer BC ==
--- NOTE | 2023-07-15 14:31 | MM ---
Reason for Exam: Screening (asymptomatic). Last mammogram was performed 1 year(s) and 2 month(s) ago. Patient History: Menarche at age 9. First Full-Term at age 31. Late child-bearing (after 30). Postmenopausal. Patient used Hormonal Contraceptives for 5 years. 02/17/2020, Benign Core Biopsy on the left side. Mother had breast cancer, age 58. Risk Values: Yarely 5 year model risk: 3.0%. NCI Lifetime model risk: 20.4%. Prior Study Comparison: 09/05/2020 Left Diagnostic Mammogram, [facility]. 04/25/2021 Bilateral Screening Mammogram, [facility]. 05/05/2022 Bilateral MG 3D screening mammo w/cad, [facility]. Tissue Density: The breasts are heterogeneously dense, which may obscure small masses. Findings: Analyzed By CAD. There is no suspicious group of microcalcifications or new suspicious mass. Overall Assessment: Negative, BI-RAD 1 Management: Screening Mammogram of both breasts in [address] [facility] will attempt to contact patient to return for supplemental views and ultrasound if indicated. Patient should continue monthly self-breast exams. A clinical breast exam by your physician is recommended on an annual basis. This exam should not preclude additional follow-up of suspicious palpable abnormalities. Note on Yarely scores and lifetime risk: 1. A Yarely score greater than 3% is considered moderate risk. If this is the case, consider specialist referral to assess eligibility for a risk reducing agent. 2. If overall lifetime risk for the development of breast cancer is 20% or higher, the patient may qualify for future screening with alternating mammogram and breast MRI. Electronically signed and approved by: Noe Jorge DO
== END | disposition home or self-care (01) ==
LOC: RADMAMWWP 07:28
PROVIDERS: ATTEND Family Medicine
DX: Z12.31 Encounter for screening mammogram for malignant neoplasm of breast (principal); Z78.0 Asymptomatic menopausal state; Z80.3 Family history of malignant neoplasm of breast
CPT/HCPCS: 77063; 77067

== ENCOUNTER → 2023-11-19 | Outpatient (CLI) | payer BC ==
[2023-11-19 15:13] LABS: Basophils # (A) 0.02 X 10*3/uL (0.00-0.10); Basophils % (A) 0.4 %; Eosinophils # (A) 0.07 X 10*3/uL (0.04-0.35); Eosinophils % (A) 1.4 %; HCT 43.6 % (37.2-46.3); HGB 14.5 g/dL (12.0-15.0); Lymphocytes # (A) 1.39 X 10*3/uL (0.90-5.00); Lymphocytes % (A) 28.1 %; MCH 31.5 pg (27.0-32.0); MCHC 33.3 g/dL (32.0-37.0); MCV 94.6 FL (80.0-97.0); Monocytes # (A) 0.48 X 10*3/uL (0.20-1.00); Monocytes % (A) 9.7 %; NRBC Per 100 WBC 0 X 10*3/uL (0.00-0.01); Neutrophils # (A) 2.98 X 10*3/uL (1.80-7.70); Neutrophils % (A) 60.2 %; Platelet Count 255 X 10*3/uL (140-440); RBC 4.61 X 10*6/uL (4.10-5.20); RDW 12.9 % (11.5-14.5); WBC 4.95 X 10*3/uL (4.50-10.00)
== END | disposition home or self-care (01) ==
LOC: LABWHC1 10:13
PROVIDERS: ATTEND Obstetrics & Gynecology
DX: Z01.818 Encounter for other preprocedural examination (principal); N95.0 Postmenopausal bleeding
CPT/HCPCS: 36415; 85025; 93005

== ENCOUNTER 2024-03-25 08:23 | Day surgery (SDC) | payer BC ==
[2024-03-23 14:04] VITALS: BMI 49.8
--- NOTE | 2024-03-24 18:55 | HP ---
HISTORY AND PHYSICAL CHIEF COMPLAINT: Perforation of the right tympanic membrane. HISTORY OF PRESENT ILLNESS: This patient is a pleasant 53-year-old female, who had previously undergone insertion of Kartush patch to the right ear approximately 2 years ago. However, the patient was recently seen in my office stating that the patch had possibly come out. At the time that she was seen in the office, clinical examination of the right ear revealed that in fact the Kartush patch had extruded and was located on the floor of the right external auditory canal. It was recommended she undergo re-insertion of the Kartush patch to the right tympanic membrane perforation. PAST MEDICAL HISTORY: Reveals that she has no allergies to medications. MEDICATIONS: Her current medications include: 1. Valsartan/HCTZ. 2. Wegovy. She is taking the Wegovy for weight loss. REVIEW OF SYSTEMS: Reveals that the cardiovascular system is positive for hypertension. The remainder of review of systems is essentially unremarkable. PREVIOUS SURGERIES: Include Kartush patch x3, adenoidectomy, tonsillectomy, 2 knee replacements, multiple sets of ventilation tubes in both ears, and herniorrhaphy. PHYSICAL EXAMINATION: GENERAL: The patient is a pleasant 53-year-old female, who is alert and cooperative. HEENT: The patient is normocephalic. Left tympanic membrane is unremarkable. Examination of the right ear reveals she has essential perforation encompassing approximately 10% of the right tympanic membrane and a green Kartush patch had extruded and is lying on the floor of the right external auditory canal. The right middle ear space is free of any fluid or infection. Pupils are equal, round, and reactive to light and accommodation. Extraocular movements are within normal limits. Intranasal examination reveals hypertrophied inferior turbinates and a moderate amount of mucus on mucous membranes and draining down the posterior pharynx. Remainder of the head and neck exam is unremarkable. CHEST/CARDIOVASCULAR: Both lung asencio are clear to percussion and auscultation. The patient is in regular sinus rhythm. S1 and S2 are present without any murmurs, S3s, or S4s. Peripheral pulses are bilaterally symmetrical. ABDOMEN: There is no evidence of any masses, megaly, or tenderness. The abdomen is soft. SKIN: Unremarkable. MUSCULOSKELETAL: Within normal limits. NEUROLOGICAL: Within normal limits. PELVIC/RECTAL: This should be printed. The pelvic/rectal exam is deferred at this time because the patient has it done on a regular basis at her family physician's office. The remainder of physical exam is essentially unremarkable. IMPRESSION: Perforation of the left tympanic membrane. PLAN: The patient is scheduled to undergone a Kartush patch to a perforation of the left tympanic membrane under IV sedation with MAC. Attention, RNs in the pre-surgical area: I have not ordered any pre-surgical prophylactic antibiotics for this patient. For this particular procedure, the patient does not require pre-surgical prophylactic antibiotics. If the pharmacy department sends any pre-surgical prophylactic antibiotics to the pre-surgical area for this patient, that order should be cancelled, and the medication should be returned to the pharmacy department. Please make sure that the patient's account is credited appropriately. I have discussed the risks, benefits and alternative therapies for the above-mentioned procedure and for both sedation/analgesia as well as necessary blood product administration, if indicated, as they pertain to this patient. The patient has indicated his or her understanding and acceptance of the risks and procedures discussed. MMODL / IJN: [id number] /
[~2024-03-25 08:23] MED LIST changes: +HYDROmorphone 0.5 MG/0.5 ML SYRINGE IVP PRN; +MIDAZOLAM 2 MG/2 ML VIAL IV PRN; +SCOPOLAMINE 1 MG/72 HR PATCH TRANSDERM ONE
[2024-03-25 08:44] VITALS: RESP 16; TEMP 98.7
[2024-03-25] MEDS: IV FLUID CONTINUATION 1,000 ML IV ONE (08:58)
[2024-03-25] MEDS: LACTATED RINGERS 1,000 ML IV SCH (08:59)
[2024-03-25] MEDS: DEXAMETHASONE SOD PHOSPHATE 4 MG/ML 1 ML VIAL IV ONE (09:01)
[2024-03-25] MEDS: ONDANSETRON 4 MG/2 ML VIAL IVP ONE (09:01)
[2024-03-25] MEDS ORDERED: KETAMINE HCL IN 0.9 % NACL 50 MG/5 ML SYRINGE ONE (10:01)
[2024-03-25] MEDS ORDERED: KETOROLAC 30 MG/ML 1 ML VIAL ONE (10:01)
[2024-03-25] MEDS ORDERED: PROPOFOL 10 MG/ML 20 ML VIAL IV ONE (10:01)
[2024-03-25] MEDS ORDERED: MIDAZOLAM 2 MG/2 ML VIAL ONE (10:01)
[2024-03-25] MEDS ORDERED: fentaNYL (PF) 50 MCG/ML 2 ML AMP ONE (10:01)
[2024-03-25] MEDS: OFLOXACIN 0.3% OPHTH DROPS 5 ML BOTTLE RIGHT EAR ONE ×2 (10:46)
[2024-03-25 11:14] VITALS: BP 129/78; PULSE 83
--- NOTE | 2024-03-28 19:22 | OP ---
OPERATIVE REPORT DATE OF SERVICE : 03/25/2024 PREOPERATIVE DIAGNOSIS: Perforation of the right tympanic membrane. POSTOPERATIVE DIAGNOSIS: Perforation of the right tympanic membrane. ANESTHESIA: IV sedation with MAC. PROCEDURE PERFORMED: Insertion of a 10 mm Kartush patch to a perforation of the right tympanic membrane. COMPLICATIONS: None. ESTIMATED BLOOD LOSS: Zero. DESCRIPTION OF PROCEDURE: The patient was placed on the operating table in supine position. After uneventful induction and IV sedation, satisfactory general anesthesia was obtained. Next, the patient's right ear was prepped and draped in usual customary fashion, following which, using a #3 aural speculum and a Zeiss operating microscope, the right external auditory canal was cleansed of all wax and debris. Next, a previously extruded 7 mm Kartush patch was removed from the external auditory canal. Following this, a 10 mm Kartush patch was inserted into the perforated tympanic membrane using a pair of alligator forceps. It was subsequently manipulated into place using a Gimmick. At this point, the procedure was terminated. There were no intraoperative complications. The patient tolerated the procedure well and was returned to the recovery room in satisfactory condition. MMODL / IJN: [id number] /
== END 2024-03-25 11:36 | disposition home or self-care (01) ==
LOC: OR 08:23
PROVIDERS: ATTEND Otolaryngology
DX: H72.91 Unspecified perforation of tympanic membrane, right ear (principal); I10 Essential (primary) hypertension; E66.9 Obesity, unspecified; Z79.899 Other long term (current) drug therapy; Z90.89 Acquired absence of other organs; Z98.890 Other specified postprocedural states; Z96.659 Presence of unspecified artificial knee joint
CPT/HCPCS: 81025; 69610; J2250; J0171; J1100; J2405; J3010; J1885; J2704

== ENCOUNTER → 2024-08-12 | Outpatient (CLI) | payer BC ==
--- NOTE | 2024-08-12 17:25 | MM ---
Reason for Exam: Screening (asymptomatic). Last mammogram was performed 1 year(s) and 1 month(s) ago. Patient History: Menarche at age 9. First Full-Term at age 31. Late child-bearing (after 30). Postmenopausal. Patient used Hormonal Contraceptives for 5 years. 02/17/2020, Benign Core Biopsy on the left side. Mother had breast cancer, age 58. Risk Values: Ziyad 5 year model risk: 3.1%. NCI Lifetime model risk: 20.1%. Prior Study Comparison: 04/25/2021 Bilateral Screening Mammogram, [facility]. 05/05/2022 Bilateral MG 3D screening mammo w/cad, [facility]. 07/14/2023 Bilateral MG 3D screening mammo w/cad, [facility]. Tissue Density: There are scattered areas of fibroglandular density. Findings: Analyzed By CAD. There are bilateral areas of prominent asymmetric density which remain unchanged. There is no suspicious group of microcalcifications or new suspicious mass in either breast. Overall Assessment: Benign, BI-RAD 2 Management: Screening Mammogram of both breasts in 1 year. SEE NOTE BELOW IN REGARDS TO THE PATIENT'S INCREASED 5 YEAR ZIYAD SCORE AND INCREASED LIFETIME RISK SCORE. Patient should continue monthly self-breast exams. A clinical breast exam by your physician is recommended on an annual basis. This exam should not preclude additional follow-up of suspicious palpable abnormalities. Note on Ziyad scores and lifetime risk: 1. A Ziyad score greater than 3% is considered moderate risk. If this is the case, consider specialist referral to assess eligibility for a risk reducing agent. 2. If overall lifetime risk for the development of breast cancer is 20% or higher, the patient may qualify for future screening with alternating mammogram and breast MRI. [facility], , 08/12/2024 5:22 PM. Electronically signed and approved by: Shyam Padilla M.D. Radiologist
== END | disposition home or self-care (01) ==
LOC: RADMAMWWP 13:17
PROVIDERS: ATTEND Family Medicine
DX: Z12.31 Encounter for screening mammogram for malignant neoplasm of breast (principal); R92.323 Mammographic fibroglandular density, bilateral breasts; Z78.0 Asymptomatic menopausal state; Z92.0 Personal history of contraception; Z80.3 Family history of malignant neoplasm of breast
CPT/HCPCS: 77063; 77067